=== PATIENT | female | born 1935 | race Caucasian/White ===

== ENCOUNTER → 2017-01-31 | Outpatient (CLI) | payer MEDICARE, OTHER ==
[~2017-01-31] MED LIST: ACET500C OR; ASPI325T OR; ASPI325T PO; ASPIRIN PO; B COCAP5 PO; CALC500T36 PO; CALCTAB93 PO; CHEL50TA PO; CIPR500T19 OR; COLA100C2 OR; CRAN400T3 PO; DULCOLAX PO; Docusate Sod/Senna PO; FERR325T OR; FERR325T PO; FERR325T3 PO; FISH500C OR; FISHCAP PO; FLEEENE4 PR; HERCEPTIN IV; LISI2.5T OR; MILKSUS PO; MIRALEX OR; MIRALEX PO; NORV5TAB PO; PAIN325T PO; PEG1POW PO; PERCOCET PO; ROSE HIPS OR; SERT50TA PO; TAMO20TA4 PO; VITA10006 PO; VITA2000 PO; VITA500T OR; VITATAB11 PO; ZINCLOZ9 PO; [UNRECOGNIZED DRUG - OTHER]; [UNRECOGNIZED DRUG - OTHER] OR; [UNRECOGNIZED DRUG - OTHER] PO
--- NOTE | 2017-01-31 15:13 | RADONC ---
RADIATION ONCOLOGY FOLLOWUP NOTE: DATE OF SERVICE: 01/31/2017 CHART NO: [id number] DIAGNOSIS: Left breast cancer. STAGE: Stage III A, [id number] ECOG PERFORMANCE STATUS: 0 Ms. 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 The patient presents today reporting that she is doing quite well with no complaints at this point related to her radiation therapy or disease. She has no breast or bone pain. REVIEW OF SYSTEMS: The patient's review of systems is noncontributory. Denies nausea, vomiting, fevers, chills, night sweats, diplopia, headaches, anxiety or depression, anorexia, weight loss, visual disturbances, chest pain, urinary or bowel difficulties, bone pain, or neurological problems. PHYSICAL EXAMINATION: The patient is a well-developed, well-nourished female in no acute distress. HEENT exam is normocephalic, atraumatic. Extraocular movements are intact. There is no palpable cervical, supraclavicular, infraclavicular, axillary, or inguinal lymphadenopathy present. Lungs are clear to auscultation and percussion. Heart has a regular rate and rhythm. Abdomen is benign with no hepatosplenomegaly, masses, or tenderness. Breast examination reveals bilateral chest villegas reveals no evidence of nodularity, ulceration or residual disease. Skeletal examination reveals no tenderness to pressure or percussion of the bony skeleton. Extremities reveal no clubbing, cyanosis, or edema. Neurologic exam is grossly intact, as is the remainder of the physical examination. ASSESSMENT: The patient is clinically GEORGINA at this time. She is being followed closely by Dr. Uriarte her medical oncologist and therefore is being discharged from our followup except on a as needed basis. cc: MD Jl Padilla MD
== END ==
LOC: M ONCR 10:59
PROVIDERS: ATTEND Radiology Radiation Oncology
DX: C50.112 Malignant neoplasm of central portion of left female breast (principal)

== ENCOUNTER 2017-04-09 10:10 | Emergency (ER) | payer MEDICARE, OTHER ==
[~2017-04-09] VITALS: Ht 157.5 cm; Wt 47.7 kg
[2017-04-09] MEDS ORDERED: VITA10006 PO (10:25)
[2017-04-09] MEDS ORDERED: NS 500 ML IV ONE (10:45)
[2017-04-09 11:17] LABS: BASO % 0.6 % (0.0-1.0); EOS % 0.7 % (0.0-3.0); LARGE UNSTAINED CELL # 0.1 K/mm3 (0.0-0.4); LARGE UNSTAINED CELL % 1.6 % (0.0-4.0); LYMPH # 0.7 K/mm3 (1.5-4.5); LYMPH % 11.8 % (24.0-44.0); MEAN CORPUSCULAR HEMOGLOBIN 33.5 pg (27.0-33.0); MEAN CORPUSCULAR HGB CONC 33.3 g/dl (32.0-36.5); MEAN CORPUSCULAR VOLUME 100.7 fl (80.0-96.0); MONO # 0.3 K/mm3 (0.0-0.8); MONO % 4.3 % (0.0-5.0); NEUTROPHILS # 4.9 K/mm3 (1.8-7.7); NEUTROPHILS % 80.9 % (36.0-66.0); PLATELET COUNT, AUTOMATED 184 k/mm3 (150-450); RED CELL DISTRIBUTION WIDTH 13.3 % (11.5-14.5)
[2017-04-09 11:40] LABS: ANION GAP 6 MEQ/L (8-16); BLOOD UREA NITROGEN 18 MG/DL (7-18); CALCIUM LEVEL 8.6 MG/DL (8.8-10.2); CARBON DIOXIDE LEVEL 29 MEQ/L (21-32); CHLORIDE LEVEL 107 MEQ/L (98-107); CREATININE FOR GFR 0.88 MG/DL (0.55-1.02); GLOMERULAR FILTRATION RATE > 60.0 (>32); GLUCOSE, FASTING 100 MG/DL (83-110); POTASSIUM SERUM 3.6 MEQ/L (3.5-5.1); SODIUM LEVEL 142 MEQ/L (136-145)
[2017-04-09 17:40] VITALS: O2SAT 98
[2017-04-09 17:43] VITALS: BP 156/71
--- NOTE | 2017-04-09 20:02 | ECGEPIP ---
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
--- NOTE | 2017-04-09 20:08 | ECGEPIP ---
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
--- NOTE | 2017-04-12 13:45 | REP ---
Clinical: Near-syncopal episode . Comparison: 08/15/2016 . Findings: The mediastinum and cardiac silhouette are stable and within normal limits for portable technique. Lung zacarias demonstrate chronic stable changes. Subtle right infrahilar opacity cannot be excluded along with 1 cm nodule versus asymmetric nipple shadow in the left mid lung zone. Impression: Cannot exclude right infrahilar opacity as well as left nodule versus asymmetric nipple shadow. Signed by Gilberto Champion MD 04/09/2017 10:40 A
--- NOTE | 2017-04-13 08:17 | ED PDOC ---
Post-Departure Follow-Up RADIOLOGY REPORT FAXED TO Gayatri Nichols MD Apr 13, 2017 08:17
== END 2017-04-09 17:41 | disposition home or self-care (01) ==
LOC: M ED 10:48
DX: R91.1 Solitary pulmonary nodule (principal); R94.31 Abnormal electrocardiogram [ECG] [EKG]; I10 Essential (primary) hypertension; E78.70 Disorder of bile acid and cholesterol metabolism, unspecified; Z88.2 Allergy status to sulfonamides; Z79.899 Other long term (current) drug therapy; Z79.82 Long term (current) use of aspirin; Z95.0 Presence of cardiac pacemaker

== ENCOUNTER → 2018-01-30 | Outpatient (CLI) | payer MEDICARE, OTHER | LOC: M RAD 10:03 | DX: C50.919 Malignant neoplasm of unspecified site of unspecified female breast (principal); M54.9 Dorsalgia, unspecified | CPT/HCPCS: 78306 ==

== ENCOUNTER → 2018-05-09 | Outpatient (REF) | payer MEDICARE, OTHER ==
[2018-05-09 20:18] LABS: FERRITIN 155 NG/ML (8-252); IRON (FE) 32 UG/DL (50-170); PERCENT SATURATION 11.3 % (13.2-45.0); TOTAL IRON BINDING CAPACITY 284 UG/DL (250-450)
== END ==
LOC: M LAB REF 17:27
DX: C50.911 Malignant neoplasm of unspecified site of right female breast (principal); C50.912 Malignant neoplasm of unspecified site of left female breast; C77.3 Secondary and unspecified malignant neoplasm of axilla and upper limb lymph nodes; Z17.0 Estrogen receptor positive status [ER+]; Z90.13 Acquired absence of bilateral breasts and nipples
CPT/HCPCS: 83550

== ENCOUNTER 2018-06-07 11:52 | Emergency (ER) | payer MEDICARE, OTHER ==
[2018-06-07 13:42] LABS: BASO % 0.2 % (0.0-1.0); EOS % 0.2 % (0.0-3.0); HEMATOCRIT 33.8 % (36.0-47.0); HEMOGLOBIN 10.8 g/dl (12.0-15.5); IMMATURE GRANULOCYTE % 0.2 % (0-3.0); LYMPH # 0.5 10^3/uL (1.5-4.5); LYMPH % 5.8 % (24.0-44.0); MEAN CORPUSCULAR HEMOGLOBIN 29.9 pg (27.0-33.0); MEAN CORPUSCULAR VOLUME 93.6 fl (80.0-96.0); MONO # 0.7 10^3/uL (0.0-0.8); MONO % 7.6 % (0.0-5.0); NEUTROPHILS # 7.3 10^3/uL (1.8-7.7); PLATELET COUNT, AUTOMATED 252 10^3/uL (150-450); RED BLOOD COUNT 3.61 10^6/uL (4.00-5.40); RED CELL DISTRIBUTION WIDTH 13.4 % (11.5-14.5); WHITE BLOOD COUNT 8.6 10^3/uL (4.0-10.0)
[2018-06-07 13:46] LABS: INR 0.95; PROTHROMBIN TIME 12.8 SECONDS (12.1-14.4)
[2018-06-07 13:47] LABS: PARTIAL THROMBOPLASTIN TIME 25.7 SECONDS (25.4-37.6)
[2018-06-07 14:00] LABS: ALBUMIN 2.9 GM/DL (3.2-5.2); ALBUMIN/GLOBULIN RATIO 0.67 (1.00-1.93); ALKALINE PHOSPHATASE 62 U/L (45-117); ALT/SGPT 19 U/L (12-78); ANION GAP 7 MEQ/L (8-16); AST/SGOT 27 U/L (7-37); BILIRUBIN,DIRECT < 0.1 MG/DL (0.0-0.2); BILIRUBIN,TOTAL 0.3 MG/DL (0.2-1.0); BLOOD UREA NITROGEN 29 MG/DL (7-18); CALCIUM LEVEL 9.2 MG/DL (8.8-10.2); CARBON DIOXIDE LEVEL 29 MEQ/L (21-32); CHLORIDE LEVEL 106 MEQ/L (98-107); CPK CREATINE PHOSPHOKINASE 28 U/L (26-192); CREATININE FOR GFR 0.92 MG/DL (0.55-1.30); GLOMERULAR FILTRATION RATE > 60.0 (>32); GLUCOSE, FASTING 100 MG/DL (70-100); MAGNESIUM LEVEL 2.1 MG/DL (1.8-2.4); POTASSIUM SERUM 3.6 MEQ/L (3.5-5.1); SODIUM LEVEL 142 MEQ/L (136-145); TOTAL PROTEIN 7.2 GM/DL (6.4-8.2); TROPONIN I < 0.02 NG/ML (< 0.10)
[2018-06-07] MEDS: NS 1,000 ML IV (14:01)
[2018-06-07 14:06] LABS: CK-MB VALUE MASS < 1.0 NG/ML (<3.6); MB/CK RELATIVE INDEX 3.57 (< OR =4)
[2018-06-09 14:41] LABS: BEDSIDE GLUCOSE 95 MG/DL (83-110)
== END 2018-06-07 17:29 | disposition home or self-care (01) ==
LOC: M ED 11:52
DX: S82.302A Unspecified fracture of lower end of left tibia, initial encounter for closed fracture (principal); W22.8XXA Striking against or struck by other objects, initial encounter; Y92.019 Unspecified place in single-family (private) house as the place of occurrence of the external cause; Z87.891 Personal history of nicotine dependence
CPT/HCPCS: 71045

== ENCOUNTER → 2018-06-20 | Outpatient (CLI) | payer MEDICARE, OTHER ==
[~2018-06-20] MED LIST changes: -ACET500C OR; -ASPI325T OR; -ASPI325T PO; -ASPIRIN PO; -B COCAP5 PO; -CALC500T36 PO; -CALCTAB93 PO; -CHEL50TA PO; -CIPR500T19 OR; -COLA100C2 OR; -CRAN400T3 PO; -DULCOLAX PO; -Docusate Sod/Senna PO; -FERR325T OR; -FERR325T PO; -FERR325T3 PO; -FISH500C OR; -FISHCAP PO; -FLEEENE4 PR; +GASTROGRAFIN SOLUTION 30ML (Q9963) As Ordered; -HERCEPTIN IV; +ISOVUE-370 76% 100ML VIAL (Q9967) As Ordered; -LISI2.5T OR; -MILKSUS PO; -MIRALEX OR; -MIRALEX PO; -NORV5TAB PO; -PAIN325T PO; -PEG1POW PO; -PERCOCET PO; -ROSE HIPS OR; -SERT50TA PO; -TAMO20TA4 PO; -VITA10006 PO; -VITA2000 PO; -VITA500T OR; -VITATAB11 PO; -ZINCLOZ9 PO; -[UNRECOGNIZED DRUG - OTHER]; -[UNRECOGNIZED DRUG - OTHER] OR; -[UNRECOGNIZED DRUG - OTHER] PO
== END ==
LOC: M RAD 11:39
DX: C50.919 Malignant neoplasm of unspecified site of unspecified female breast (principal); R05 Cough; R10.9 Unspecified abdominal pain; R91.8 Other nonspecific abnormal finding of lung field
CPT/HCPCS: Q9963

== ENCOUNTER → 2018-07-02 | Outpatient (CLI) | payer MEDICARE, OTHER ==
[~2018-07-02] MED LIST changes: -GASTROGRAFIN SOLUTION 30ML (Q9963) As Ordered; -ISOVUE-370 76% 100ML VIAL (Q9967) As Ordered; +LIDOCAINE 1% MDV 20ML VIAL As Ordered
== END ==
LOC: M RADPRO 12:11
DX: C78.01 Secondary malignant neoplasm of right lung (principal); I10 Essential (primary) hypertension; M12.9 Arthropathy, unspecified; D50.9 Iron deficiency anemia, unspecified; Z79.82 Long term (current) use of aspirin; Z79.899 Other long term (current) drug therapy; Z85.3 Personal history of malignant neoplasm of breast; Z90.13 Acquired absence of bilateral breasts and nipples; Z90.710 Acquired absence of both cervix and uterus; Z90.49 Acquired absence of other specified parts of digestive tract; Z95.818 Presence of other cardiac implants and grafts; Z95.0 Presence of cardiac pacemaker; Z87.891 Personal history of nicotine dependence
CPT/HCPCS: 32405

== ENCOUNTER → 2018-07-09 | Outpatient (REF) | payer MEDICARE, OTHER ==
[2018-07-09 18:23] LABS: INR 0.84; PROTHROMBIN TIME 11.6 SECONDS (12.1-14.4)
[2018-07-09 18:24] LABS: PARTIAL THROMBOPLASTIN TIME 28.2 SECONDS (25.4-37.6)
== END ==
LOC: M LAB REF 16:30
DX: C50.911 Malignant neoplasm of unspecified site of right female breast (principal); C50.912 Malignant neoplasm of unspecified site of left female breast; C77.3 Secondary and unspecified malignant neoplasm of axilla and upper limb lymph nodes; Z17.0 Estrogen receptor positive status [ER+]; Z90.13 Acquired absence of bilateral breasts and nipples; D50.9 Iron deficiency anemia, unspecified
CPT/HCPCS: 85610

== ENCOUNTER → 2018-09-16 | Outpatient (CLI) | payer MEDICARE, OTHER | LOC: M RAD 15:54 | DX: R91.8 Other nonspecific abnormal finding of lung field (principal); R93.5 Abnormal findings on diagnostic imaging of other abdominal regions, including retroperitoneum; C50.919 Malignant neoplasm of unspecified site of unspecified female breast | CPT/HCPCS: 71250 ==

== ENCOUNTER → 2018-10-10 | Outpatient (CLI) | payer MEDICARE, OTHER ==
[~2018-10-10] MED LIST changes: +ACET500C OR; +ACET500T15 PO; +ASPI325T OR; +ASPI325T PO; +ASPIRIN PO; +B COCAP5 PO; +CALC500T36 PO; +CALCI50TA PO; +CALCTAB93 PO; +CHEL50TA PO; +CIPR500T19 OR; +COLA100C2 OR; +CRAN400T3 PO; +D-10TAB PO; +DEXA2TA PO; +DULCOLAX PO; +Docusate Sod/Senna PO; +FERR325T OR; +FERR325T PO; +FERR325T3 PO; +FISH500C OR; +FISHCAP PO; +FLEEENE4 PR; +HERCEPTIN IV; -LIDOCAINE 1% MDV 20ML VIAL As Ordered; +LISI2.5T OR; +MILK120011 PO; +MIRALEX OR; +MIRALEX PO; +NORV5TAB PO; +OSTETAB7 PO; +PAIN325T PO; +PEG1POW PO; +PERCOCET PO; +RANI1TAB6 PO; +ROLLMIS2 XX; +ROSE HIPS OR; +SERT50TA PO; +TAMO20TA8 PO; +VITA10006 PO; +VITA2000 PO; +VITA250L PO; +VITA500T OR; +VITATAB11 PO; +ZINCLOZ9 PO; +[UNRECOGNIZED DRUG - OTHER]; +[UNRECOGNIZED DRUG - OTHER] OR; +[UNRECOGNIZED DRUG - OTHER] PO
== END ==
LOC: M RAD 16:33
PROVIDERS: ATTEND Internal Medicine Medical Oncology
DX: R55 Syncope and collapse (principal); C50.919 Malignant neoplasm of unspecified site of unspecified female breast

== ENCOUNTER → 2018-10-25 | Outpatient (CLI) | payer MEDICARE, OTHER ==
[~2018-10-25] MED LIST changes: +ISOVUE-370 76% 100ML VIAL (Q9967) As Ordered ONE
--- NOTE | 2018-10-25 15:48 | REP ---
CT HEAD WITHOUT AND WITH CONTRAST: HISTORY: Metastatic breast carcinoma. CONTRAST: Isovue-370, 75 mL. A right ring enhancing mass 1.7 cm in width is present in the anterior right cerebellum. There is no surrounding edema. There is very minimal mass effect on the 4th ventricle. There is no midline shift. Areas of decreased attenuation are present in the periventricular and subcortical white matter. This represents small vessel ischemic disease. There is no intraparenchymal hemorrhage, infarct, or midline shift. The ventricular system and cortical sulci are dilated consistent with mild volume loss. There is no extra cerebral collection. Mucosal thickening is present in the ethmoid, maxillary, frontal and right sphenoid sinuses. IMPRESSION: 1. There is a 1.7 cm ring enhancing mass consistent with a metastasis in the right cerebellum. There is no midline shift. 2. Small vessel ischemic disease. 3. Mild volume loss. Electronically Signed by Jeffery Sousa MD 10/25/2018 03:49 P
--- NOTE | 2018-10-28 13:41 | MEDONCTEEN ---
Date/Time of Encounter Date of Encounter: Oct 28, 2018 Time of Encounter: 13:[address] head showed a brain lesion. I recommended a Radiation Oncology referral. SHARITA PEREZ MD Oct 28, 2018 13:41
== END ==
LOC: M RAD 14:35
PROVIDERS: ATTEND Internal Medicine Medical Oncology
DX: C50.919 Malignant neoplasm of unspecified site of unspecified female breast (principal); C78.01 Secondary malignant neoplasm of right lung; I73.9 Peripheral vascular disease, unspecified
CPT/HCPCS: 70470; Q9967

== ENCOUNTER → 2018-11-04 | Outpatient (CLI) | payer MEDICARE, OTHER ==
[~2018-11-04] MED LIST changes: -ISOVUE-370 76% 100ML VIAL (Q9967) As Ordered ONE
--- NOTE | 2018-11-06 09:50 | RADONC ---
RADIATION ONCOLOGY CONSULTATION NOTE DATE OF SERVICE: 11/04/2018 CHART NUMBER: [id number] DIAGNOSIS: Left breast cancer. STAGE: Stage III A, [id number], now metastatic. ECOG PERFORMANCE STATUS: 0. CONSULTATION NOTE: Ms. 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 HISTORY OF PRESENT ILLNESS: The patient was initially seen by us on April 27, 2011. She had undergone routine mammogram on 08/19/2010 and a suspicious abnormality was seen. The patient underwent bilateral mastectomies on 11/18/2010 and pathology revealed a right breast cancer with a 3 cm poorly differentiated infiltrating ductal carcinoma. The tumor was estrogen receptor positive, progesterone receptor positive and HER2/channing positive. The left breast revealed three masses, each measuring 3 cm in size and were poorly differentiated. A total of nine left axillary lymph nodes were positive for malignancy with extracapsular extension noted. The patient underwent systemic therapy and we treated the patient to her left chest wall for a dose of 5040 cGy. The scar area received an additional 1000 cGy to bring it to a total of 6040 cGy. In addition, we treated the patient to the lymph node drainage sites for a dose of 5040 cGy as well. Overall, the patient did quite well and was last seen by me on 01/31/2017. At that time, she had no evidence of disease and I discharged her from our followup. She was continuing with her follow up with her medical oncologist, Dr. Uriarte. Apparently, a CAT scan was done in June of this year which showed lung metastases. A repeat CT of the chest done in September showed progression of those metastases. The patient has had increased difficulty with hearing and a CT scan of the head was undertaken on 10/10/2018. This showed a new 2 cm low density area in the right superior cerebellum consistent with a mass lesion. On 10/25/[address] scan of the head was undertaken with and without contrast and this confirmed a 1.7 cm ring enhancing mass consistent with metastatic disease in the right cerebellar area. PAST MEDICAL HISTORY: The patient's past medical history is positive for hypertension, cholecystectomy, appendectomy and tonsillectomy. She also had a hysterectomy. She has a pacemaker and a history of seizures. She has a history of bronchitis as well. ALLERGIES: The patient is allergic to SULFA DRUGS. SOCIAL HISTORY The patient has smoked one pack of cigarettes per day for 60 years. She quit approximately 5 or 6 years ago. Does not abuse alcohol. FAMILY HISTORY: The patient's family history is positive for a sister with lung cancer and a maternal grandmother with gallbladder cancer. REVIEW OF SYSTEMS: The patient's review of systems is positive for physical limitations secondary to her old age and some occasional dizziness. She has anxiety and some visual disturbances. She reports decreased energy and weakness in her arms and legs, as well as some hearing loss and shortness of breath. She denies nausea, vomiting, fevers, chills, night sweats, diplopia, headaches, chest pain, urinary or bowel difficulties, bone pain or neurological problems. PHYSICAL EXAMINATION: The patient is an elderly white female who is presenting in a wheelchair. HEENT: Exam is normocephalic, atraumatic. Extraocular movements are intact. The remainder of the physical was deferred. ASSESSMENT: I had a very lengthy discussion with this patient and her family with regards to her options. We discussed traditional all brain external beam radiation therapy versus stereotactic radiosurgery. This is a solitary 1.7 cm metastasis and should be well served with stereotactic radiosurgery, which we do not do in this facility. I have therefore referred her to obtain an expert opinion from the radiation oncologists at [facility] in [place]. We also discussed her metastatic disease to the lung, which appears to be slowly progressing. I have compared a CT scan of the lung done this summer with one done in September and clearly there is some progression of disease. The patient does not wish to undergo systemic therapy for her lung metastasis and is realistic with regards to her overall age and outcome. She and her family have discussed the fact that they want the best option for long-term control of her brain metastasis to keep her mind clear for the remainder of time she has left. They are aware, that considering her limited prognosis, WBRT would be an acceptable option. In light of this, I am referring the patient, as noted above, to the radiation oncology department at [facility]. We are also scheduling her to come back to us following that for followup as well in order to close the loop. In addition, she will continue her follow up with her medical oncologist. cc: MD Joelle Wilburn MD, FACP Jl Valadez MD [facility]
== END ==
LOC: M ONCR 13:51
PROVIDERS: ATTEND Radiology Radiation Oncology
DX: C50.912 Malignant neoplasm of unspecified site of left female breast (principal); C71.9 Malignant neoplasm of brain, unspecified

== ENCOUNTER 2018-12-30 17:01 | Inpatient (IN) | payer MEDICARE, OTHER ==
[~2018-12-30] VITALS: Ht 162.6 cm; Wt 60.9 kg
[2018-12-30 17:58] LABS: HEMATOCRIT 35.8 % (36.0-47.0); HEMOGLOBIN 11.7 g/dl (12.0-15.5); MEAN CORPUSCULAR HGB CONC 32.7 g/dl (32.0-36.5); MEAN CORPUSCULAR VOLUME 91.8 fl (80.0-96.0); PLATELET COUNT, AUTOMATED 106 10^3/uL (150-450); WHITE BLOOD COUNT 4.1 10^3/uL (4.0-10.0)
[2018-12-30 17:58] LABS: VENOUS BASE EXCESS 1.3 (-2.0-2.0); VENOUS HCO3 24.3 MEQ/L (23.0-27.0); VENOUS O2 SATURATION 96.3 % (60.0-80.0); VENOUS PARTIAL PRESSURE CO2 33.4 mmHg (38.0-50.0); VENOUS PARTIAL PRESSURE O2 82.2 mmHg (30.0-50.0); VENOUS STANDARD HCO3 25.6 MEQ/L; VENOUS TOTAL CO2 25.3 MEQ/L (24.0-28.0)
[2018-12-30 18:28] LABS: ALBUMIN 2.3 GM/DL (3.2-5.2); BILIRUBIN,DIRECT 0.1 MG/DL (0.0-0.2); BILIRUBIN,TOTAL 0.3 MG/DL (0.2-1.0); CALCIUM LEVEL 8.2 MG/DL (8.8-10.2); CREATININE FOR GFR 1.06 MG/DL (0.55-1.30); GLOMERULAR FILTRATION RATE 52.4 (>32); MB/CK RELATIVE INDEX 8.71 (< OR =4); POTASSIUM SERUM 3.8 MEQ/L (3.5-5.1); THYROID STIMULATING HORMONE 1.38 uIU/ML (0.358-3.740); TOTAL PROTEIN 5.3 GM/DL (6.4-8.2); TROPONIN I 0.06 NG/ML (< 0.10)
[2018-12-30 18:30] LABS: INFLUENZA A AMPLIFICATION NEGATIVE (NEGATIVE); INFLUENZA B AMPLIFICATION NEGATIVE (NEGATIVE)
[2018-12-30 18:31] LABS: ATYPICAL LYMPH 1 % (0-5); EOSINOPHILS 1 % (0-5); METAMYELOCYTES 3 % (0-0); NEUTROPHILS 76 % (35-75)
[2018-12-30 18:32] LABS: DOHLE BODIES 1+; TOXIC VACUOLATION 2+
[2018-12-30 18:34] LABS: TOXIC GRANULATION 1+
[2018-12-30 18:35] LABS: PLATELET ESTIMATE DECREASED (NORMAL)
--- NOTE | 2018-12-30 19:36 | REP ---
Portable chest x-ray: Single view. History: Dyspnea and cough. Comparison chest x-ray: July 02, 2018. Findings: Multiple bilateral pulmonary nodules and masses are again noted consistent with extensive pulmonary metastatic disease. The nodules appear more numerous and are rather extensive bilaterally. A bipolar pacemaker is seen in the right heart via the left side as before. There are surgical clips in the axillary soft tissues bilaterally. Impression: Findings consistent with progressive pulmonary metastatic disease. Pacemaker in place. No acute infiltrate. Electronically Signed by Cole Bey MD 12/30/2018 08:59 P
[2018-12-30] MEDS ORDERED: NS 1,000 ML IV SCH ×2 (19:40→22:00)
[2018-12-30] MEDS ORDERED: cefTRIAXone SOD 1 GM in D5W MINI-BAG PLUS 50 ML IV ONE (21:00)
[2018-12-30] MEDS ORDERED: NAPROXEN 250 MG TAB PO ONE (21:00)
[2018-12-30] MEDS ORDERED: [UNRECOGNIZED DRUG - CODE] SL (21:11)
[2018-12-30] MEDS ORDERED: DEXA2TA PO (21:11)
[2018-12-30] MEDS ORDERED: GLUC15009 PO (21:14)
[2018-12-30] MEDS ORDERED: ALEV220T26 PO (21:14)
[2018-12-30] MEDS ORDERED: CRAN400C PO (21:14)
[2018-12-30] MEDS ORDERED: BISO5TAB5 PO (21:14)
[2018-12-30] MEDS ORDERED: RANI150C PO (21:15)
[2018-12-30] MEDS ORDERED: ACET-683 PO (21:17)
[2018-12-30] MEDS ORDERED: ONDANSETRON 4MG/2ML VIAL (J2405) IV PRN (22:00)
[2018-12-30] MEDS ORDERED: traMADol 50 MG TAB PO ONE (22:15)
[2018-12-30] MEDS ORDERED: ACETAMINOPHEN TAB 650MG DOSE (2X325MG) PO PRN (22:15)
--- NOTE | 2018-12-30 23:01 | HPE ---
DATE OF ADMISSION: 12/30/2018 CHIEF COMPLAINT: Subjective fevers and chills, and right hip pain radiating down the legs. HISTORY OF THE PRESENT ILLNESS: The patient is an 83-year-old female with significant past medical history of metastatic breast cancer with metastasis (mets) to the lungs, approximately 8 years ago, status post bilateral mastectomy, chemo, radiation, now has mets to the lungs. Usually follows with Dr. Tran, has not had treatment for this metastatic breast cancer since 8 years ago. She was on estrogen modulator, which was subsequently stopped. She has hypertension, hyperlipidemia, anemia. She presents to the emergency room as per her daughter who prompted her to go as she was having chills last night. Patient denies any cough. She denies any chest pain, shortness of breath, abdominal pain, constipation, diarrhea, urinary symptoms, nausea or vomiting. Notably, over the past several days, she has also been complaining of right hip pain radiating down to the knees. CT of the abdomen and pelvis in the emergency room shows lytic lesions in the sacrum and the iliac crest concerning for bony mets, which may likely be responsible for her pain versus possibly some sort of lumbar radiculopathy or muscle strain. Patient's family states she has a very poor appetite and consumes very little fluids at home. She tends to get dehydrated. She has a mild lactate on presentation to the emergency room; however, she does not appear toxic. She is quite pleasant appearing. Also, notably in the history she had a recent gamma knife procedure for mets to the cerebellum in September at [facility]. She has been on Decadron since then for cerebral edema. PAST MEDICAL HISTORY: See history of the present illness. PAST SURGICAL HISTORY: She has had a hysterectomy, cholecystectomy, tonsillectomy and adenoidectomy, bilateral mastectomy many years ago. She has had a gamma knife excision of cerebellar mass in 09/2018 at [facility]. ALLERGIES: SULFA and SULFA DRUG CROSS REACTORS. HOME MEDICATIONS: Include: - Tylenol - naproxen - vitamin C - aspirin - bisoprolol - vitamin D - Decadron - ferrous sulfate - ranitidine - sertraline SOCIAL HISTORY: She is a former smoker. Denies alcohol or illicit drug abuse. FAMILY HISTORY: Heart disease and lung cancer - sister. REVIEW OF SYSTEMS: A 12-point review of systems was completed, all of which were negative except those listed in the history of the present illness. VITAL SIGNS ON ADMISSION: Temperature 97.2, pulse of 82, respirations of 18, blood pressure 112/52, saturating at 94% on room air. PHYSICAL EXAM: General: She is an elderly female. She is very well nourished and nontoxic appearing, in no apparent distress. Eyes: Extraocular movements are intact. Pupils equal, round, reactive to light. Neck is supple. No jugular venous pressure (JVP). Lungs: Some mild wheezing but no crackles. Cardiovascular: Regular rate and rhythm. Normal S1, S2. No murmurs, gallops, or rubs. Abdomen: Soft, nontender, nondistended. Positive bowel sounds. No rebound or guarding. Extremities: No pitting edema or calf tenderness. Skin: Intact. No rashes, lesions, or breakdown. Neurological: Alert and oriented times three. No focal deficit appreciated on the exam. LABS AND IMAGING: Completed in the emergency room. White count of 4, hemoglobin and hematocrit of 11 over 35, platelet count of 106. VB.48, 82, 96. Chemistry shows a lactate of 2.7, BUN and creatinine of 36 over 1.06. TSH within normal limits, BNP of 2446, alkaline phosphatase of 222, AST of 69. UA has 7 WBCs. Rapid flu is negative. Chest x-ray shows findings consistent with progressive pulmonary metastatic disease, pacemaker in place. Head CT has interval increase in the size of the low density right cerebellar lesion, now measuring 2.6 x 1.9 cm. There is some increased edema in the inferiorly adjacent right cerebellar hemisphere. CT of the abdomen and pelvis: Bony metastatic lesion in the right upper sacrum and right iliac bone, new from September 16, 2018. Old healed fracture in the left inferior pubic ramus, unchanged from prior comparison. Diverticulosis without diverticulitis. ASSESSMENT AND PLAN: Generalized weakness, hip pain. This is likely secondary to deconditioning, dehydration, and the hip pain is likely secondary to the new bony mets versus less likely some type of lumbar radiculopathy. Will place the patient on tramadol. Will get physical therapy (PT). Will fluid hydrate. Will trend the lactate until it normalizes. Her urinalysis only has 7 WBCs; I do not think this is significant at this point in time. One dose of ceftriaxone was given in the emergency room. Will get a second dose just to cover empirically in this patient who is on Decadron; however, she has no urinary tract infection (UTI) type symptoms and the UA is relatively sterile. She has a history of sick sinus syndrome, status post pacemaker. This is stable. History of metastatic breast cancer with mets to the lungs, mets to the brain, status post gamma knife, possibly now mets to the bone. She usually sees Dr. Tran. She has an upcoming appointment. Her neurosurgeon is at [facility]. She is on Decadron for brain edema. Continue the Decadron. She will be tapered as per her neurosurgeon, upcoming soon. Continue the Decadron as per dosage. History of hypertension. Continue bisoprolol. Iron deficiency anemia. Continue ferrous sulfate. Gastroesophageal reflux disease. Continue ranitidine. Depression/anxiety. Continue Zoloft. SUPPORTIVE: Deep vein thrombosis (DVT) prophylaxis: Heparin subcu. Gastrointestinal (GI) prophylaxis: The patient is already on an H2 cecelia. Diet: Cardiac. MTDD
[2018-12-31 01:05] VITALS: BP 150/65
[2018-12-31] MEDS: IPRATROPIUM 0.5MG/ALBUTEROL 2.5MG INH SOL UD 3ML (DUONEB)(J7620) NEB SCH ×4 (02:00→20:18)
[2018-12-31 05:00] VITALS: BP 134/63
[2018-12-31] MEDS: HEPARIN SOD (PORCINE) 5000 UNITS/ML VIAL SC SCH ×3 (05:37→21:10)
--- NOTE | 2018-12-31 06:32 | REP ---
CT brain without contrast: History: Altered mental status. Comparison brain CT study is from October 25, 2018. This prior study showed a 1.7 cm ring enhancing lesion consistent with metastasis in the right cerebellum. CT findings: Bone window settings show no bony calvarial lesion. Visualized paranasal sinuses remain clear. No intraorbital abnormality is seen. Vascular calcifications again noted. There is diffuse atrophy and small vessel change. There is evidence of old lacunar infarcts in the right basal ganglia, unchanged. No acute infarct is seen. No hemorrhage is noted. The previously noted low density lesion in the right cerebellum has increased somewhat in size from 2.0 x 1.6 to 2.6 x 1.9 cm. There is some inferiorly adjacent edema which is also increased. No other intracranial mass lesion is seen. No extra-axial fluid collection is observed. Ventricular size is unchanged. Impression: Interval increase in the size of the low density right cerebellar lesion, now measuring 2.6 x 1.9 cm. There is some increased edema in the inferiorly adjacent right cerebellar hemisphere. Electronically Signed by Cole Bey MD 12/31/2018 07:35 P
--- NOTE | 2018-12-31 06:35 | REP ---
CT abdomen and pelvis without IV contrast or oral contrast. History: Right flank pain. History of breast carcinoma metastatic. CT findings: There are multiple metastatic pulmonary nodules and masses in the lung bases as seen radiographically. No focal hepatic lesion is seen. The spleen is unremarkable. No adrenal lesion is observed. No pancreatic abnormality observed. The gallbladder is surgically absent. There is no evidence of hydronephrosis or intrarenal calculus on either side. A 2.5 cm ectasia is seen in the abdominal aorta. No aneurysm is observed. Heavy vascular calcification is seen. The appendix is surgically absent. Urinary bladder is unremarkable. The patient is status post hysterectomy. There is left colonic diverticulosis without CT evidence of diverticulitis. No abdominal wall defect is seen. Bone window settings demonstrate an expansile area in the inferior pubic ramus on the left which it is felt to be an old healed fracture. It is unchanged from prior studies. However, there are two adjacent small radiolucencies in the iliac bone on the right above the iliac crest with some cortical breakthrough consistent with a radiolucent skeletal metastasis. There is also a lesion in the right sacrum. This measures 2.5 cm in greatest diameter. These findings are new. No other skeletal lesion. Impression: Bony metastatic lesions in the right upper sacrum and right iliac bone, new from September 16, 2018. Old healed fracture left inferior pubic ramus unchanged from comparison studies. Left colonic diverticulosis without evidence of diverticulitis. No acute intra-abdominal abnormality. Electronically Signed by Cole Bey MD 12/31/2018 07:36 P
[2018-12-31 07:15] LABS: BLOOD UREA NITROGEN 28 MG/DL (7-18); CALCIUM LEVEL 8.2 MG/DL (8.8-10.2); CARBON DIOXIDE LEVEL 26 MEQ/L (21-32); CHLORIDE LEVEL 108 MEQ/L (98-107); CREATININE FOR GFR 0.58 MG/DL (0.55-1.30); GLOMERULAR FILTRATION RATE > 60.0 (>32); GLUCOSE, FASTING 101 MG/DL (70-100); POTASSIUM SERUM 3.7 MEQ/L (3.5-5.1); SODIUM LEVEL 141 MEQ/L (136-145)
[2018-12-31] MEDS: FAMOTIDINE 20 MG TAB PO SCH (08:26)
[2018-12-31] MEDS: SERTRALINE HCL 50 MG TAB PO SCH (08:26)
[2018-12-31] MEDS: ASCORBIC ACID 500 MG TAB PO SCH ×2 (08:26→21:09)
--- NOTE | 2018-12-31 08:49 | ECGEPIP ---
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
[2018-12-31] MEDS: VITAMIN D 1,000 INTERNATIONAL UNITS TABLET PO SCH (12:17)
[2018-12-31] MEDS: BISOPROLOL FUM 2.5 MG PER 1/2TAB PO SCH (12:37)
[2018-12-31] MEDS ORDERED: cefTRIAXone SOD 1 GM in D5W MINI-BAG PLUS 50 ML IV SCH (13:00)
[2018-12-31 13:08] LABS: HEMATOCRIT 32.1 % (36.0-47.0); HEMOGLOBIN 10.2 g/dl (12.0-15.5); MEAN CORPUSCULAR HGB CONC 31.8 g/dl (32.0-36.5); MEAN CORPUSCULAR VOLUME 94.4 fl (80.0-96.0); WHITE BLOOD COUNT 11.5 10^3/uL (4.0-10.0)
[2018-12-31 13:50] LABS: PLATELET COUNT, AUTOMATED 87 10^3/uL (150-450)
[2018-12-31 14:07] VITALS: BP 134/83
--- NOTE | 2018-12-31 18:18 | IPNPDOC ---
Date Seen The patient was seen on 12/31/18. Progress Note SUBJECTIVE: Patient was seen this morning. She currently states that since arriving her leg pain has been well controlled with medications. She is denying any complaints at this time. OBJECTIVE PHYSICAL EXAMINATION: VITAL SIGNS: Please see below. GENERAL: Awake, alert, and oriented. She appears in no acute distress. She is lying flat in bed comfortably HEENT: Atraumatic, normocephalic. Eyes are non-icteric. Trachea is midline. Mucous membranes are pink and moist no elevation central venous pressure CARDIOVASCULAR: Normal S1, S2. Regular rate and rhythm. No clicks, rubs, or murmurs RESPIRATORY: Clear vesicular lung sounds bilaterally. No wheezes, rhonci, rales ABDOMINAL: Soft, nondistended, nontender to palpation throughout. Positive bowel sounds EXTREMITIES: No edema. Pulses full and equal in bilateral lower and upper extremities NEUROLOGICAL: No focal neurological deficits PSYCHOLOGICAL: Mood and affect appear appropriate LABORATORY DATA, IMAGING STUDIES, MICROBIOLOGY: Please see below. DVT prophylaxis ordered?: ASSESSMENT AND PLAN: Patient is a 83 year old female with a past medical history of breast cancer who was recently found to have mets to her lungs and cerebellum who presented to the ED with complaint of right leg pain and overall generalized weakness and chills. CT imaging revealed likely lytic bone lesions in the sacrum and iliac crest. Patients family also noted that she has had poor PO intake recently. PROBLEMS: 1. Bactermia Gram negative rods -Patient was found to have Gram negative bacteremia from blood cultures. Currently her WBC remains unelevated and she is afebrile although she has complained of chills previously. She has received a dose of Rocephin in the ED. -Cultures are pending. -Continue IV Rochephin 2. Metastatic Breast Cancer -Patient was found to have metastatic breast cancer to the lungs, cerebellum, and possibly the pelvis. She currently is not receiving treatment. The patient accompanied by her two daughters was introduced to the idea of hospice care. The patient has voiced that she would prefer to be home and not have invasive treatments. The patients family has been in contact with hospice services today. She is in agreement with meeting with hospice again tomorrow. The goal and options of going with hospice or not were discussed with the patient. At this current time she does have positive blood cultures suggesting bacteremia. The current plan is to treat her for her possible bacteremia and upon discharge patient may go home on Hospice. -Patient will be continued on Decadron for cerebellar swelling secondary to recent gamma knife treatment 3. History of Hypertension -Continue home bisoprolol 4. Iron Deficiency Anemia -Continue ferrous sulfate 5. GERD -Continue ranitidine 6. Depression/Anxiety -Continue Zoloft 7. DVT prophylaxis -Heparin SQ VS, I&O, 24H, Fishbone Vital Signs/I&O Vital Signs Date Time Temp Pulse Resp B/P (MAP) Pulse Ox O2 Delivery O2 Flow Rate FiO2 12/31/18 14:07 97.2 65 134/83 (100) 93 12/31/18 05:00 66 12/31/18 01:05 2.0 12/30/18 23:46 Nasal Cannula I&O- Last 24 Hours up to 6 AM 12/31/18 06:00 Intake Total 470 ml Output Total 850 ml Balance -380 ml Laboratory Data 24H LABS Laboratory Tests 2 12/30/18 20:18: Urine Color YELLOW, Urine Appearance HAZY, Urine pH 5.0, Urine Specific [place] 1.017, Urine Protein NEGATIVE, Urine Glucose (UA) NEGATIVE, Urine Ketones NEGATIVE, Urine Blood NEGATIVE, Urine Nitrite NEGATIVE, Urine Bilirubin NEGATIVE, Urine Urobilinogen 0.2, Urine Leukocyte Esterase TRACEH, Urine WBC (Auto) 7H, Urine RBC (Auto) 3, Urine Hyaline Casts (Auto) 0, Urine Bacteria (Auto) 3+H, Urine Squamous Epithelial Cells 0, Urine Sperm (Auto) 12/30/18 22:11: Lactic Acid Followup at 4 Hours 1.8 12/31/18 06:37: Nucleated Red Blood Cells % (auto) 0.2H, Immature Platelet Fraction 2.6, Anion Gap 7L, Glomerular Filtration Rate > 60.0, Blood Urea Nitrogen 28H, Creatinine 0.58, Sodium Level 141, Potassium Level 3.7, Chloride Level 108H, Carbon Dioxide Level 26, Calcium Level 8.2L CBC/BMP Laboratory Tests 12/31/18 06:37 Red Blood Count 3.40 L, Mean Corpuscular Volume 94.4, Mean Corpuscular Hemoglobin 30.0, Mean Corpuscular Hemoglobin Concent 31.8 L, Red Cell Distribution Width 17.6 H, Calcium Level 8.2 L Microbiology Microbiology 12/30/18 Blood Culture - Preliminary, Resulted 12/30/18 Blood Culture - Preliminary, Resulted 12/30/18 Urine Culture, Received Pending GME ATTESTATION GME ATTESTATION My faculty preceptor for this patient encounter was physically present during the encounter and was fully available. All aspects of the patient interview, examination, medical decision making process, and medical care plan development were reviewed and approved by the faculty preceptor. The faculty preceptor is aware and concurs with the plan as stated in the body of this note and will attest to such by his/her cosignature. ATTENDING NOTE In brief this is an 83-year-old female who initially presented for subjective fevers at home and pain in the right hip CT scan is showing lytic lesions in the right hip most certainly metastatic disease which is new to the patient's knowledge. The patient immediately expresses her desire to go home she informed me she wants no further treatments therapies she does not wish to have any further blood draws antibiotics chemotherapy or to be brought back to the hospital again I did discuss hospice at length with her including its shortening of her life. Her request I do not feel is unreasonable given her widely metastatic visceral disease stage IV with large brain mass currently not receiving treatment she may well certainly be within the last 6 months of her life. At this time I did encourage her to remain in hospital to treatment for urinary tract infection and did request to revisit the issue in the presence of her family who were able to present later today. Myself Dr. Claros and the patient's 2 daughters did have a lengthy conversation, the older daughter had already spoken to hospice today. The younger daughter is declining hospice care in my presence. During the younger daughter's protest to the suggestion of hospice at home I did make an effort to redirect and asked the patient in the presence how she would wish to proceed laying out options such as full code, reevaluation for chemotherapy and active treatment options, DNR/DNI, hospice at home, hospice house. The patient once again requests hospice at home and the younger daughter begins to speak loudly over the patient stating she does not want hospice. Greater than 30 mins were spent bedside this afternoon, all questions were answered to the satisfaction of the three of them. The daughter suggests that the patient may not be understanding things fully I do make a plan to provide them with a molst form and continue goals of care discussions in the coming days. We are all in agreement that she should continue treatment for her infection remain in hospital at this time JARED CLAROS DO Dec 31, 2018 18:18 KAYODE OSPINA MD Jan 04, 2019 16:53
[2018-12-31] MEDS ORDERED: ASPIRIN 325 MG TAB PO SCH (21:00)
[2018-12-31] MEDS: FERROUS SULFATE 325MG TAB PO SCH (21:09)
[2018-12-31 22:00] VITALS: BP 148/70
[2019-01-01] MEDS: IPRATROPIUM 0.5MG/ALBUTEROL 2.5MG INH SOL UD 3ML (DUONEB)(J7620) NEB SCH ×4 (02:00→20:49)
[2019-01-01 06:00] VITALS: BP 148/75
[2019-01-01] MEDS: HEPARIN SOD (PORCINE) 5000 UNITS/ML VIAL SC SCH (06:00)
[2019-01-01 07:15] LABS: HEMATOCRIT 29.5 % (36.0-47.0); HEMOGLOBIN 9.4 g/dl (12.0-15.5); MEAN CORPUSCULAR HGB CONC 31.9 g/dl (32.0-36.5); RED BLOOD COUNT 3.24 10^6/uL (4.00-5.40); WHITE BLOOD COUNT 9.3 10^3/uL (4.0-10.0)
[2019-01-01 07:22] LABS: PLATELET COUNT, AUTOMATED 78 10^3/uL (150-450)
[2019-01-01 07:34] LABS: BLOOD UREA NITROGEN 25 MG/DL (7-18); CALCIUM LEVEL 8.9 MG/DL (8.8-10.2); CARBON DIOXIDE LEVEL 24 MEQ/L (21-32); CHLORIDE LEVEL 108 MEQ/L (98-107); CREATININE FOR GFR 0.51 MG/DL (0.55-1.30); GLOMERULAR FILTRATION RATE > 60.0 (>32); GLUCOSE, FASTING 120 MG/DL (70-100); POTASSIUM SERUM 4.1 MEQ/L (3.5-5.1); SODIUM LEVEL 141 MEQ/L (136-145)
[2019-01-01] MEDS: BISOPROLOL FUM 2.5 MG PER 1/2TAB PO SCH (08:24)
[2019-01-01] MEDS: FAMOTIDINE 20 MG TAB PO SCH (08:24)
[2019-01-01] MEDS: ASCORBIC ACID 500 MG TAB PO SCH ×2 (08:24→20:53)
[2019-01-01] MEDS: SERTRALINE HCL 50 MG TAB PO SCH (08:24)
[2019-01-01] MEDS ORDERED: LevoFLOXacin IV 250 MG in APPROPRIATE DILUENT 1 EA IV SCH (10:15)
--- NOTE | 2019-01-01 12:10 | IPNPDOC ---
Date Seen The patient was seen on 01/01/19. Progress Note SUBJECTIVE: Patient seen and examined this morning. She currently has no complaints. She denies any nausea, vomiting, diarrhea, constipation. Denies any fever or chills. She did have positive blood cultures which have grown pansensitive Escherichia coli. Is present. His previous discussed with the patient the idea of hospice upon discharge. Her daughters are meeting with hospice today. Patient was shown a MOLST form and stated that she will go over it with her daughters when they come today. OBJECTIVE PHYSICAL EXAMINATION: VITAL SIGNS: Please see below. GENERAL: Patient awake, alert, oriented, appears in no acute distress. She is sitting comfortably in bed HEENT: Normocephalic. Eyes are nonicteric. Trachea is midline. Mucous membranes are pink and moist CARDIOVASCULAR: Normal S1, S2, regular rate and rhythm clicks, rubs or murmurs. RESPIRATORY:. Clear vesicular breath sounds bilaterally with good history effort. No wheezes, rhonchi, rales. ABDOMINAL:, Soft, nontender to palpation. Positive bowel sounds, no rebound tenderness or guarding EXTREMITIES:, No edema. Full equal pulses bilaterally in upper and lower extremities NEUROLOGICAL: No focal neurological deficits PSYCHOLOGICAL: Mood and affect appear appropriate for situation LABORATORY DATA, IMAGING STUDIES, MICROBIOLOGY: Please see below. DVT prophylaxis ordered?: YES ASSESSMENT AND PLAN: Patient is a 83 year old female with a past medical history of breast cancer who was recently found to have mets to her lungs and cerebellum who presented to the ED with complaint of right leg pain and overall generalized weakness and chills. CT imaging revealed likely lytic bone lesions in the sacrum and iliac crest. Patients family also noted that she has had poor PO intake recently. PROBLEMS: 1. Bactermia with culture positive pansensitive Escherichia coli -Patient was found to have Gram negative bacteremia from blood cultures. Currently her WBC remains unelevated and she is afebrile although she has complained of chills previously. She has received a dose of Rocephin in the ED. -Cultures revealed pansensitive Escherichia coli -Patient will receive IV Levaquin -Repeat cultures pending. Once negative cultures, Patient will be transition to by mouth medications. Discharge. 2. Metastatic Breast Cancer -Patient was found to have metastatic breast cancer to the lungs, cerebellum, and possibly the pelvis. She currently is not receiving treatment. The patient accompanied by her two daughters was introduced to the idea of hospice care. The patient has voiced that she would prefer to be home and not have invasive treatments. The patients family has been in contact with hospice services. She is in agreement with meeting with hospice again tomorrow. The goal and options of going with hospice or not were discussed with the patient. At this current time she does have positive blood cultures suggesting bacteremia. The current plan is to treat her for her possible bacteremia and upon discharge patient will go home on Hospice. -Patient's family has plan to meet with hospice today. Patient was given a MOLST form today which she will discuss with her daughters when they arrive. -Patient will be continued on Decadron for cerebellar swelling secondary to recent gamma knife treatment 3. Thrombocytopenia -Patients platelets have decreased over her stay. We will discontinue her aspirin, heparin, and Rocephin. She will be changed to IV levaquin for antibiotic coverage 3. History of Hypertension -Continue home bisoprolol 4. Iron Deficiency Anemia -Continue ferrous sulfate 5. GERD -Continue ranitidine 6. Depression/Anxiety -Continue Zoloft 7. DVT prophylaxis -Discontinued secondary to thrombocytopenia DISPOSITION: Patient will likely be discharged tomorrow on oral antibiotics. At this point she is unsure whether she is going to be discharged on hospice or not. VS, I&O, 24H, [place] Vital Signs/I&O Vital Signs Date Time Temp Pulse Resp B/P (MAP) Pulse Ox O2 Delivery O2 Flow Rate FiO2 01/01/19 08:24 67 148/75 01/01/19 06:00 97.4 16 94 12/31/18 01:05 2.0 12/30/18 23:46 Nasal Cannula I&O- Last 24 Hours up to 6 AM 01/01/19 06:00 Intake Total 810 ml Output Total 850 ml Balance -40 ml Laboratory Data 24H LABS Laboratory Tests 2 01/01/19 06:39: Nucleated Red Blood Cells % (auto) 0.2H, Immature Platelet Fraction 4.6, Anion Gap 9, Glomerular Filtration Rate > 60.0, Blood Urea Nitrogen 25H, Creatinine 0.51L, Sodium Level 141, Potassium Level 4.1, Chloride Level 108H, Carbon Dioxide Level 24, Calcium Level 8.9 CBC/BMP Laboratory Tests 01/01/19 06:39 Red Blood Count 3.24 L, Mean Corpuscular Volume 91.0, Mean Corpuscular Hemoglobin 29.0, Mean Corpuscular Hemoglobin Concent 31.9 L, Red Cell Distribution Width 17.0 H, Calcium Level 8.9 Microbiology Microbiology 01/01/19 Blood Culture, Received Pending 12/30/18 Blood Culture - Preliminary, Resulted 12/30/18 Blood Culture - Preliminary, Resulted 12/30/18 Urine Culture - Final, Complete Escherichia Coli GME ATTESTATION GME ATTESTATION My faculty preceptor for this patient encounter was physically present during the encounter and was fully available. All aspects of the patient interview, e xamination, medical decision making process, and medical care plan development were reviewed and approved by the faculty preceptor. The faculty preceptor is aware and concurs with the plan as stated in the body of this note and will attest to such by his/her cosignature. JARED CLAROS DO Jan 01, 2019 12:10
[2019-01-01] MEDS: VITAMIN D 1,000 INTERNATIONAL UNITS TABLET PO SCH (12:46)
[2019-01-01] MEDS: LevoFLOXacin IV 750 MG in APPROPRIATE DILUENT 1 EA IV SCH (12:48)
[2019-01-01 14:00] VITALS: BP 140/63
[2019-01-01 20:00] VITALS: BP 137/63
[2019-01-01] MEDS: FERROUS SULFATE 325MG TAB PO SCH (20:53)
[2019-01-02] MEDS: IPRATROPIUM 0.5MG/ALBUTEROL 2.5MG INH SOL UD 3ML (DUONEB)(J7620) NEB SCH ×4 (02:00→20:00)
[2019-01-02 04:00] VITALS: BP 154/68
[2019-01-02] MEDS: FAMOTIDINE 20 MG TAB PO SCH (08:59)
[2019-01-02] MEDS: SERTRALINE HCL 50 MG TAB PO SCH (09:00)
[2019-01-02] MEDS: ASCORBIC ACID 500 MG TAB PO SCH ×2 (09:00→21:22)
[2019-01-02] MEDS: BISOPROLOL FUM 2.5 MG PER 1/2TAB PO SCH (09:00)
[2019-01-02 09:05] LABS: HEMATOCRIT 31.1 % (36.0-47.0); HEMOGLOBIN 9.9 g/dl (12.0-15.5); MEAN CORPUSCULAR HEMOGLOBIN 29.7 pg (27.0-33.0); MEAN CORPUSCULAR HGB CONC 31.8 g/dl (32.0-36.5); MEAN CORPUSCULAR VOLUME 93.4 fl (80.0-96.0); PLATELET COUNT, AUTOMATED 109 10^3/uL (150-450); RED BLOOD COUNT 3.33 10^6/uL (4.00-5.40); WHITE BLOOD COUNT 9.4 10^3/uL (4.0-10.0)
[2019-01-02 09:33] LABS: BLOOD UREA NITROGEN 19 MG/DL (7-18); CARBON DIOXIDE LEVEL 26 MEQ/L (21-32); CHLORIDE LEVEL 105 MEQ/L (98-107); CREATININE FOR GFR 0.61 MG/DL (0.55-1.30); GLOMERULAR FILTRATION RATE > 60.0 (>32); GLUCOSE, FASTING 121 MG/DL (70-100); SODIUM LEVEL 141 MEQ/L (136-145)
[2019-01-02] MEDS: VITAMIN D 1,000 INTERNATIONAL UNITS TABLET PO SCH (13:11)
[2019-01-02 14:00] VITALS: BP 168/68
--- NOTE | 2019-01-02 14:35 | IPNPDOC ---
Date Seen The patient was seen on 01/02/19. Progress Note SUBJECTIVE: Patient was seen and examined this morning. She currently has no complaints. Her pain on her right leg has resolved. She has denied any fevers or chills since her admission. She denies any chest pain or shortness of breath. The patients family and health care proxy was here today to discuss Hospice options. They have decided not to go with Hospice at this point in time. The patients health care proxy, her granddaughter who is a nurse had requested to see the patients lab work. She has requested a BNP be added to the patients morning labs tomorrow. The patient has not complained of difficulty breathing, symptoms of paroxysmal nocturnal dyspnea, or any complaints consistent with worsening heart failure. OBJECTIVE PHYSICAL EXAMINATION: VITAL SIGNS: Please see below. GENERAL: Patient awake, alert, oriented, appears in no acute distress. She is sitting comfortably in bed HEENT: Normocephalic. Eyes are nonicteric. Trachea is midline. Mucous membranes are pink and moist CARDIOVASCULAR: Normal S1, S2, regular rate and rhythm clicks, rubs or murmurs. RESPIRATORY:. Clear vesicular breath sounds bilaterally with good history effort. No wheezes, rhonchi, rales. ABDOMINAL:, Soft, nontender to palpation. Positive bowel sounds, no rebound tenderness or guarding EXTREMITIES:, No edema. Full equal pulses bilaterally in upper and lower extremities NEUROLOGICAL: No focal neurological deficits PSYCHOLOGICAL: Mood and affect appear appropriate for situation LABORATORY DATA, IMAGING STUDIES, MICROBIOLOGY: Please see below. DVT prophylaxis ordered?: YES ASSESSMENT AND PLAN: Patient is a 83 year old female with a past medical history of breast cancer who was recently found to have mets to her lungs and cerebellum who presented to the ED with complaint of right leg pain and overall generalized weakness and chills. CT imaging revealed likely lytic bone lesions in the sacrum and iliac crest. Patients family also noted that she has had poor PO intake recently. PROBLEMS: 1. Bactermia with culture positive pansensitive Citrobacter amalonaticus -Patient was found to have Gram negative bacteremia from blood cultures. Currently her WBC remains unelevated and she is afebrile although she has complained of chills previously. She has received a dose of Rocephin in the ED. -Cultures revealed Citrobacter amalonaticus -Patient has received 750 IV Levaquin. She will get a second dose tomorrow -Patient will likely be discharged with oral antibiotics tomorrow 2. Metastatic Breast Cancer -Patient was found to have metastatic breast cancer to the lungs, cerebellum, and possibly the pelvis. She currently is not receiving treatment. The patient accompanied by her two daughters was introduced to the idea of hospice care. The patient has voiced that she would prefer to be home and not have invasive treatments. The patients family has been in contact with hospice services. She is in agreement with meeting with hospice again tomorrow. The goal and options of going with hospice or not were discussed with the patient. At this current time she does have positive blood cultures suggesting bacteremia. -Patient and her family have discussed Hospice and at this time are going to decline going home on hospice. I have discussed the case with Dr. Tran the patients Oncologist who plans on seeing the patient this evening to discuss prognosis and the next course of action given the patient wants to continue with treatment. -Patients health care proxy has traveled down. Patient has yet to fill out a MOLST form however, one has been made available for them -Patient will be continued on Decadron for cerebellar swelling secondary to recent gamma knife treatment -Care was discussed with patients health care proxy who requested that a BNP be drawn for heart failure. The patient does not present with any symptoms suggestive of worsening or decompensated heart failure. 3. Thrombocytopenia -Patients platelets have decreased over her stay. Aspirin, Heparin, and Rocephin were discontinued. Patients platlets are trending up. 3. History of Hypertension -Continue home bisoprolol 4. Iron Deficiency Anemia -Continue ferrous sulfate 5. GERD -Continue ranitidine 6. Depression/Anxiety -Continue Zoloft 7. DVT prophylaxis -Discontinued secondary to thrombocytopenia DISPOSITION: Likely discharge 24-48 hrs with oral antibiotics VS, I&O, 24H, Fishbone VS, I&O, 24H, Fishbone Vital Signs/I&O Vital Signs Date Time Temp Pulse Resp B/P (MAP) Pulse Ox O2 Delivery O2 Flow Rate FiO2 01/02/19 09:00 63 177/82 01/02/19 04:00 99.5 18 92 12/31/18 01:05 2.0 12/30/18 23:46 Nasal Cannula I&O- Last 24 Hours up to 6 AM 01/02/19 06:00 Intake Total 1060 ml Output Total 1250 ml Balance -190 ml Laboratory Data 24H LABS Laboratory Tests 2 01/02/19 06:35: Nucleated Red Blood Cells % (auto) 0.3H, Anion Gap 10, Glomerular Filtration Rate > 60.0, Blood Urea Nitrogen 19H, Creatinine 0.61, Sodium Level 141, Potassium Level 4.0, Chloride Level 105, Carbon Dioxide Level 26, Calcium Level 9.0 CBC/BMP Laboratory Tests 01/02/19 06:35 Red Blood Count 3.33 L, Mean Corpuscular Volume 93.4, Mean Corpuscular Hemoglobin 29.7, Mean Corpuscular Hemoglobin Concent 31.8 L, Red Cell Distribution Width 17.2 H, Calcium Level 9.0 Microbiology Microbiology 01/02/19 Blood Culture, Received Pending 01/01/19 Blood Culture - Preliminary, Resulted No growth after 24 hours . All specim... 12/30/18 Blood Culture - Final, Complete Citrobacter Amalonaticus 12/30/18 Blood Culture - Final, Complete Citrobacter Amalonaticus 12/30/18 Urine Culture - Final, Complete Escherichia Coli GME ATTESTATION GME ATTESTATION My faculty preceptor for this patient encounter was physically present during the encounter and was fully available. All aspects of the patient interview, examination, medical decision making process, and medical care plan development were reviewed and approved by the faculty preceptor. The faculty preceptor is aware and concurs with the plan as stated in the body of this note and will attest to such by his/her cosignature. ATTENDING NOTE I did visit with the patient's younger daughter yesterday, but it was not in the presence of the patient at her request. She stated she did want any further goals of care discussions to be had until the health care proxy could present to the hospital today. The healthcare proxy does present today, she informs me of her displeasure, she has been told that the patient was taken off antibiotics and has not been receiving active treatment while hospitalized. I was able to correct her and inform her that there has been no interruption in the patient's care since she has been here. She wishes to know why the patient has been offered hospice, I explained to her the patient has expressed wishes for this to me on multiple occasions and given that it is not an unreasonable request given her terminal diagnosis I felt it prudent to approach the subject. The proxy informs me that they're currently undecided regarding DNR DNI status and are not interested in hospice care at this time. They do request an oncology consultation which I happily comply with, the healthcare proxy who is a nurse request to review the patient's labs with me, we sit and go through each days laboratory studies together she is concerned of the elevated BNP at the time of the patient's presentation and suggested that the patient must be in congestive heart failure I inform her that there is no clinical reason to suspect this and this was several days ago she has received IV fluids since then she is tolerated quite well she is lying flat next was in the bed speaking in complete sentences with no clinical evidence to suggest congestive heart failure. The proxy asked me to check a BNP tomorrow, I did inform her that I do not feel this will change my management given she has no evidence of congestive heart failure and that I would not begin treating the patient any differently should it come back more elevated. I do agree to order laboratory study at the behest of the proxy, she informs me that if the patient developed congestive heart failure 2 or [address] she would want to know that it had been starting here. Greater than 30 minutes spent bedside answering all questions to the satisfaction of the patient proxy and youngest daughter nursing staff did accompany me during this conversation JARED CLAROS DO Jan 02, 2019 14:35 KAYODE OSPINA MD Jan 04, 2019 17:02
[2019-01-02] MEDS ORDERED: SODIUM CHLORIDE NASAL 0.65% SPRAY BTL (OCEAN) PRN (16:15)
--- NOTE | 2019-01-02 16:39 | CR.PDOC ---
General Date of Consultation: Jan 02, 2019 Primary Care Physician Impression full consult dioone dictation to follow Plan cont to treat for imfection \family would like [facility] \ will ask for change in attending in the hosptial \ per family request \ no hospice at this time hold opff on palliative care as they are down their tax credit leasing consultant for 2 weeks Consultation REASON FOR CONSULTATION/CHIEF COMPLAINT: . HISTORY OF PRESENT ILLNESS: . ALLERGIES: Please see below. HOME MEDICATIONS: Please see below. PAST MEDICAL HISTORY: 1. . 2. . PAST SURGICAL HISTORY: 1. 2. FAMILY HISTORY: Father: Mother: Siblings: Children: Hereditary Diseases: Unexpected deaths due to medical reasons: SOCIAL HISTORY: Marital status and/or living arrangements: Children: Employment: Tobacco use: ETOH: Illicit drug use: IV drug use: Other relevant social factors: REVIEW OF SYSTEMS: CONSTITUTIONAL: . HEENT: . CARDIOVASCULAR: . RESPIRATORY: . GENITOURINARY: . MUSCULOSKELETAL: . GASTROINTESTINAL: . SKIN: . NEUROLOGICAL: . PSYCHIATRIC: . ENDOCRINE: . HEMATOLOGIC/LYMPHATIC: . ALLERGIC/IMMUNOLOGIC: . PHYSICAL EXAMINATION: VITAL SIGNS: Please see below. GENERAL APPEARANCE: . HEENT: . RESPIRATORY: . CARDIOVASCULAR: . ABDOMEN: . EXTREMITIES: . NEUROLOGICAL: . PSYCHIATRIC: . LABORATORY DATA: Please see below. ASSESSMENT/PLAN: 1. . 2. . Vital Signs/I&O Vital Signs Date Time Temp Pulse Resp B/P (MAP) Pulse Ox O2 Delivery O2 Flow Rate FiO2 01/02/19 14:00 97.4 61 15 168/68 (101) 93 12/31/18 01:05 2.0 12/30/18 23:46 Nasal Cannula I&O- Last 24 Hours up to 6 AM 01/02/19 06:00 Intake Total 1060 ml Output Total 1250 ml Balance -190 ml Laboratory Data Labs 24H Laboratory Tests 2 01/02/19 06:35: Nucleated Red Blood Cells % (auto) 0.3H, Anion Gap 10, Glomerular Filtration Rate > 60.0, Blood Urea Nitrogen 19H, Creatinine 0.61, Sodium Level 141, Potassium Level 4.0, Chloride Level 105, Carbon Dioxide Level 26, Calcium Level 9.0 CBC/BMP Laboratory Tests 01/02/19 06:35 Red Blood Count 3.33 L, Mean Corpuscular Volume 93.4, Mean Corpuscular Hemoglobin 29.7, Mean Corpuscular Hemoglobin Concent 31.8 L, Red Cell Distribution Width 17.2 H, Calcium Level 9.0 Microbiology Microbiology 01/02/19 Blood Culture, Received Pending 01/01/19 Blood Culture - Preliminary, Resulted No growth after 24 hours . All specim... 12/30/18 Blood Culture - Final, Complete Citrobacter Amalonaticus 12/30/18 Blood Culture - Final, Complete Citrobacter Amalonaticus 12/30/18 Urine Culture - Final, Complete Escherichia Coli Allergies Coded Allergies: Sulfa Drugs (Verified Allergy, Unknown, 01/16/13) Sulfa Drugs Cross Reactors (Verified Allergy, Unknown, 01/16/13) Home Medications Scheduled Ascorbic Acid (Vitamin C) 1,000 Mg Tab, 1,000 MG PO BID, (Reported) Aspirin (Aspirin) 325 Mg Tab, 325 MG PO QHS, (Reported) Bisoprolol Fumarate (Bisoprolol Fumarate) 5 Mg Tab, 2.5 MG PO DAILY, (Reported) Cholecalciferol (D-1000) 1,000 Unit Tab, 1,000 UNIT PO DAILY, (Reported) WITH LUNCH Cranberry Extract (Cranberry) 400 Mg Cap, 400 MG PO BID, (Reported) Cyanocobalamin (B-12) 5,000 Mcg Sub, 5,000 MCG SL DAILY, (Reported) WITH LUNCH Dexamethasone (Dexamethasone) 2 Mg Tab, 2 MG PO TID, (Reported) Ferrous Sulfate (Ferrous Sulfate) 325 Mg Tab, 325 MG PO QHS, (Reported) Glucosamine Hydrochloride (Glucosamine) 1,500 Mg Tab, 1,500 MG PO QPM, (Reported) Ranitidine HCl (Ranitidine HCl) 150 Mg Cap, 1 CAP PO DAILY, (Reported) Sertraline Hcl (Sertraline HCl) 50 Mg Tab, 50 MG PO DAILY, (Reported) Scheduled PRN Acetaminophen (Acetaminophen Extra Stren) 500 Mg Tab, 500 MG PO Q6H PRN for PAIN, (Reported) Naproxen Sodium (Aleve) 220 Mg Tab, 220 MG PO BID PRN for PAIN, (Reported) Michelle Tran MD Jan 02, 2019 16:39
[2019-01-02] MEDS ORDERED: oxyCODONE 5MG TAB PO PRN (16:45)
[2019-01-02] MEDS: FERROUS SULFATE 325MG TAB PO SCH (21:22)
[2019-01-02 22:00] VITALS: BP 148/67
[2019-01-03] VITALS (10 sets, daily range): BP systolic 80–188; BP diastolic 40–90
[2019-01-03] MEDS: IPRATROPIUM 0.5MG/ALBUTEROL 2.5MG INH SOL UD 3ML (DUONEB)(J7620) NEB SCH ×4 (02:00→20:00)
[2019-01-03 06:46] LABS: HEMATOCRIT 33.7 % (36.0-47.0); MEAN CORPUSCULAR HEMOGLOBIN 29.6 pg (27.0-33.0); MEAN CORPUSCULAR HGB CONC 32.6 g/dl (32.0-36.5); MEAN CORPUSCULAR VOLUME 90.8 fl (80.0-96.0); PLATELET COUNT, AUTOMATED 116 10^3/uL (150-450); RED BLOOD COUNT 3.71 10^6/uL (4.00-5.40); WHITE BLOOD COUNT 9.6 10^3/uL (4.0-10.0)
[2019-01-03 07:14] LABS: BLOOD UREA NITROGEN 22 MG/DL (7-18); CALCIUM LEVEL 8.6 MG/DL (8.8-10.2); CARBON DIOXIDE LEVEL 27 MEQ/L (21-32); CHLORIDE LEVEL 104 MEQ/L (98-107); CREATININE FOR GFR 0.56 MG/DL (0.55-1.30); GLOMERULAR FILTRATION RATE > 60.0 (>32); GLUCOSE, FASTING 94 MG/DL (70-100); NT-PRO BNP 2046 PG/ML (<450); POTASSIUM SERUM 4.1 MEQ/L (3.5-5.1); SODIUM LEVEL 138 MEQ/L (136-145)
[2019-01-03] MEDS: DOCUSATE SODIUM 100 MG CAP PO SCH (09:20)
[2019-01-03] MEDS: SERTRALINE HCL 50 MG TAB PO SCH (09:20)
[2019-01-03] MEDS: FAMOTIDINE 20 MG TAB PO SCH (09:20)
[2019-01-03] MEDS: ASCORBIC ACID 500 MG TAB PO SCH ×2 (09:20→20:23)
[2019-01-03] MEDS: BISOPROLOL FUM 2.5 MG PER 1/2TAB PO SCH (09:20)
[2019-01-03] MEDS ORDERED: NS 1,000 ML IV ONE (10:30)
[2019-01-03] MEDS: ACETAMINOPHEN 500 MG TAB PO PRN (11:10)
[2019-01-03] MEDS: VITAMIN D 1,000 INTERNATIONAL UNITS TABLET PO SCH (13:05)
[2019-01-03] MEDS: LevoFLOXacin IV 750 MG in APPROPRIATE DILUENT 1 EA IV SCH (13:05)
[2019-01-03] MEDS ORDERED: MIRALAX *UNIT DOSE* 17GM PACKET PO PRN (13:45)
[2019-01-03] MEDS ORDERED: ISOVUE-370 76% 125ML VIAL (Q9967 PER ML) As Ordered ONE (15:40)
--- NOTE | 2019-01-03 17:07 | CR ---
DATE OF CONSULTATION: 01/03/2019 CONSULTATION REPORT FOR: Dr. Michelle Tran REASON FOR CONSULTATION: Bacteremia. 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 The patient was brought in by her daughter for she was not feeling well. Ms. Grewal states that she had no chest pain, shortness of breath, abdominal pain, constipation, diarrhea, dysuria, urinary frequency, nausea, vomiting. She states though in the last couple of days she has noticed her right hip has sharp, shooting pain that is exacerbated by touch and some movement. She feels like she has a wooden leg, but has good range of motion in the right lower extremity. She admits to using a walker at home which is not new. The only new medication she does have is Decadron which was started in September of 2018, for they did find a cerebellar mass and she just completed her Gamma knife radiation 5 weeks ago. This was done at [facility]. When she saw the radiation oncologist this past Sunday, when she complained of the right lower extremity, they stated that it is probably secondary to her Decadron dose and they were thinking about tapering this. Prior to my examination today, she did have a vasovagal episode earlier on the floor, which the patient stated is common for her. She denies having any shortness of breath, trouble breathing, nausea, vomiting. She does state having some lightheadedness and a little bit of a headache this morning where she was unable to sleep from all the disturbance from the nurses. Since being admitted, her white count has been relatively stable at 9.6. She has been afebrile. Microbiology: Blood cultures times two grew Citrobacter amalonaticus. Her urine culture did grow Escherichia (E) coli even though the patient was not complaining of any dysuria, urinary frequency, or bladder fullness. She was started on Levaquin 750 mg every [address] abdominal pelvic imaging on admission did show bony metastatic lesions on the right upper sacrum and the right iliac bone which is new from 09/16/2018. PAST MEDICAL HISTORY: 1. Metastatic breast cancer with metastases to the lung, brain, and bone status post bilateral mastectomy, chemotherapy, radiation. 2. Hypertension. 3. Hyperlipidemia. 4. Anemia. PAST SURGICAL HISTORY: 1. Hysterectomy. 2. Cholecystectomy. 3. Tonsillectomy. 4. Adenoidectomy. 5. Appendectomy. 6. Bilateral mastectomy 8 years ago. 7. Pacemaker placement. 8. Gamma knife excision of the cerebellar mass September 2018. ALLERGIES: SULFA and SULFA DRUG CROSS-REACTORS. HOME MEDICATIONS: - Tylenol - naproxen - vitamin C - aspirin - bisoprolol - vitamin D - Decadron - iron supplements - ranitidine - sertraline SOCIAL HISTORY: Former smoker. Denies any alcohol or illicit drug use. FAMILY HISTORY: Sister - heart disease and lung cancer. REVIEW OF SYSTEMS: Unless stated above in the history of present illness (HPI), the remaining 12-point review of systems is negative. PHYSICAL EXAMINATION: VITAL SIGNS: Temperature 96.8, pulse 66, respirations 18, blood pressure 188/80 (116), pulse oximetry 96% on 2 liters of oxygen. GENERAL: This is a very pleasant, 83-year-old female, who is awake, alert, and oriented times three, does not appear in acute distress, laying down comfortably in the hospital bed with multiple blankets around her. Her granddaughter, who is the healthcare proxy, and daughter was at bedside to help answer questions. HEENT: Normocephalic, atraumatic. Pupils are equal, round, and reactive. Mucous membranes are pink and moist. CARDIOVASCULAR: Normal S1, S2 sounds, regular rate and rhythm. No audible rubs, clicks, or murmurs noted. RESPIRATORY: Clear to auscultate bilaterally in the upper lobes, slight expiratory wheeze in the lower lobes. No rhonchi or rales appreciated though. ABDOMEN: Soft, nontender to palpation, positive bowel sounds in all four quadrants. No rebounding or guarding noted. There is some tenderness on palpation of the right pelvic bone though which is there at baseline, the patient states that it does not change with palpation. LOWER EXTREMITIES: No lower extremity edema or tenderness. Strong pulses bilaterally. INTEGUMENTARY: No obvious skin breakdown in the anterior portion of the lower extremities. Superficial skin abrasions appreciated on the back of the thigh bilaterally and on the right sacral bone measuring about 2-3 cm in size. LABORATORY DATA: Hematology: WBC 9.6, hemoglobin 11.0, hematocrit 33.7, platelets 116. Chemistry: Sodium 138, potassium 4.1, chloride 104, carbon dioxide 27, anion gap 7, BUN 22, creatinine 0.56, fasting glucose 94, calcium 8.6, proBNP 2046. Microbiology: Blood cultures positive for Citrobacter amalonaticus times two on 12/30/2018. Blood cultures from 01/01/2019 and blood cultures 01/02/2019 negative for growth for 48 and 24 hours, respectively. Urine cultures from 12/30/2018 positive for E. coli. IMAGING: Chest x-ray on 12/30/2018, says findings consistent with progressive pulmonary metastatic disease. Pacemaker in place. Heat CT from 12/30/2018, interval increase in the size in the lower density right cerebellar lesion now measuring 2.6 x 1.9 cm. There is some increased edema in the inferior adjacent right cerebellar hemisphere. Abdominal pelvic CT without IV or by mouth contrast, bony metastatic lesions in the right upper sacrum and right iliac bone new from 09/16/2018. Old healed fracture in the left inferior pubic rami unchanged from comparison study. Left colonic diverticulosis without evidence of diverticulitis. No acute intraabdominal abnormalities. IMPRESSION AND PLAN: This is a pleasant, 83-year-old female with a known past medical history of breast cancer with metastases to the lungs, brain, and now bone (recently diagnosed) who presented to the emergency department (ED) for rigors and chills and we were consulted because she had bacteremia on admission. These are our following recommendations: 1. Bacteremia with culture positive rivera sensitive Citrobacter amalonaticus. This is a gram-negative bacteria which is usually found in the gastrointestinal or genitourinary. She is not complaining of anything in the symptoms such as dysuria, urinary frequency, bladder fullness, nausea, vomiting, diarrhea, constipation. We are unsure of where this is from, if she possibly has a "leaky gut." CT abdomen did show that she has diverticulosis even though she does not have signs of diverticulitis. With her current new complaint of the right-sided hip pain, even though the CT abdomen without contrast did show metastatic lesions, we would like to get a CT of the femur with IV contrast to assess if there is an underlying abscess or possible osteomyelitis that can explain for this gram-negative bacteremia. Unless the CT imaging finding comes back positive for anything, we do recommend by mouth antibiotics Levaquin 500 mg daily for the next 10-14 days from negative blood cultures. 2. Metastatic breast cancer. She has new metastatic lesions found on the pelvis. She has known metastases to the lungs and cerebellum. Dr. Tran is already following the patient and we appreciate her recommendations for further care. For her cerebral edema, she is currently on Decadron 2 mg three times a day. While she is on this, they will continue with gastrointestinal (GI) prophylaxis which is Zantac twice a day. We will leave remaining recommendations from hematology/oncology. My faculty preceptor for this patient encounter was physically present during the encounter and was fully available. All aspects of the patient interview, examination, medical decision making process, and medical care plan development were reviewed and approved by the faculty preceptor. The faculty preceptor is aware and concurs with the plan as stated in the body of this note and will attest to such by his/her cosignature.
--- NOTE | 2019-01-03 18:16 | CR ---
DATE OF CONSULTATION: 01/03/2019 This is a very pleasant white female who was admitted to the hospital due to concerns of increasing weakness, lethargy, and pain, The patient was then admitted due to generalized weakness, fatigue, and increasing right lateral leg pain. The patient has a pertinent past medical history of having been treated for bilateral carcinoma of the breast. The patient's past medical history initially starts back in November 2010, where she was underwent a right and left radical mastectomy. The right breast showed a T2 N0 infiltrating carcinoma with 2/3 lymph nodes. She was ER/GA positive and HER2/channing positive, and the left breast showed T2 N2 infiltrating carcinoma, ER negative, GA negative with 6/7 lymph nodes positive with a grade 3 lymphovascular invasion, and 2/3 lymph nodes were positive. The patient had been given adjuvant chemotherapy with Adriamycin, cyclophosphamide, and paclitaxel followed by maintenance trastuzumab for 1 year in 2010. She was then started on adjuvant endocrine therapy with anastrozole, and she was switched to exemestane and then to tamoxifen due to poor tolerance. The patient had developed in January 2018 worsening back pain, and a bone scan was done to assess for metastatic disease. The patient also had complained of some mental status changes. She had a CT scan of the brain done, which had shown a brain lesion in October 2018. The patient was found to have a solitary 1.7 cm brain metastasis and well underwent whole-brain radiation, or palliative brain radiation therapy. Full-staging workup had been done, and the patient had also shown metastatic pulmonary disease that had apparently been slowly progressing. The patient had opted not to undergo adjuvant systemic therapy for her lung metastasis due to her age and overall outcome. Her treatment has been palliative. The patient had presented to the emergency room on 12/30/2018 complaining of fever, chills, and night sweats. The patient had also had a new complaint of right hip pain radiating down to her knees. A CT scan of the abdomen and pelvis was done in the emergency room, showing lytic lesions in the sacrum as well as the iliac crest, consistent with bony metastatic disease. The patient had a decreased appetite, was taking in few liquids, and was found to be hydrated. The patient had developed a cerebellum aside from her frontal lobe lesion in September 2018 and was treated with gamma knife therapy. The patient had been on Decadron for cerebral edema. Her chest x-ray had shown progressive pulmonary metastatic disease, and a CT scan of the chest had shown an increase in the size of the right cerebellar lesion, which now measures 2 x [address] scan of the abdomen and pelvis showed the bony lesion in the right upper sacrum and iliac bone and an old healed fracture in the left inferior pubic ramus, unchanged from prior comparison. Also, the patient showed some diverticulosis without any signs of inflammation or abdominal pathology. The patient's medications include the following: - acetaminophen 500 mg by mouth every 6 hours as needed - ascorbic acid 1000 mg by mouth twice a day - aspirin 325 mg by mouth at bedtime - bisoprolol fumarate 2.5 mg by mouth daily - cholecalciferol 1000 units by mouth daily - cranberry extract 400 mg by mouth twice a day - cyanocobalamin 5000 units sublingual daily - dexamethasone 2 mg by mouth three times a day - ferrous sulfate 325 mg by mouth at bedtime - glucosamine 1500 mg by mouth every evening - Aleve 220 by mouth twice a day as needed - sertraline 50 mg by mouth daily PAST MEDICAL HISTORY: Above noted in history of present illness (HPI). ALLERGIES: SULFA and SULFA CROSS-REACTING DRUGS. REVIEW OF SYSTEMS: She has generalized weakness, fatigue, lethargy, decreased appetite. She denies any history of any nausea or vomiting. She relates some degree of anxiety but otherwise relates that she does need assistance in some of her activities of daily living. She notes that she does have pain in the right lower leg area with radiation down to the leg, but she can get up and pivot and transfer with assistance. PHYSICAL EXAMINATION: She appears pale, weak, but she is able to discuss with examiner what her concerns are. Her temperature is 96.8, pulse is 66, respiratory rate is 18, blood pressure (BP) is 188/80, pulse oximetry is 96. HEENT: Normocephalic, atraumatic. Pupils equal, round, and reactive to light (PERRL), extraocular muscles intact (EOMI) Sclerae are otherwise white, nonicteric. Oropharynx is otherwise clear. NECK: Supple with no adenopathy. CHEST: Decreased breath sounds at the bases. CARDIOVASCULAR: S1, S2 appreciated with no murmurs. ABDOMEN: Otherwise soft. It is nontender. No ascites. No guarding. No rebound. EXTREMITIES: Show no cyanosis, clubbing, or any edema. The patient has mild discomfort on the right side of the leg. She relates having had generalized pain but no other exacerbation. Weightbearing was not tested. The patient shows on her CT scan of the head an interval increase in the size of a low-density right cerebellar lesion, now measuring to 2 x 6 x 1.9 cm and previously measured 2 x 2 x 1.6 cm. Going on to the CT scan of the abdomen and pelvis, it shows multiple metastatic pulmonary nodules and masses in the lung bases. No focal hepatic lesion is seen. The spleen is unremarkable. No adrenal lesion is observed. The gallbladder is surgically absent. Bone windows show an expansile lesion in the inferior pubic ramus on the left, which is felt to be old healed fracture. It is unchanged from the prior study. There are two adjacent small radiolucencies in the iliac bone on the right above the iliac crest with some cortical breakthrough, consistent with a radiolucent skeletal metastasis. There is also a lesion in the right sacrum. This measures 2 x 5 in its greatest dimension. These findings are new. The patient had a blood culture done on 12/30/2018, which shows his Citrobacter amalonaticus and urine culture showing Escherichia (E) coli. The patient's current antibiotic coverage as Levaquin. On the patient's laboratories, it shows a WBC count of 9.4, hemoglobin of 9.9/31.3, MCV of 93.4, RDW of 17.2, and platelet counts of 109 with 0.3% nucleated RBC. The patient has a neutrophil count of 76. She also has toxic granulation, toxic vacuolation, as well as Dohle bodies. On her serum chemistries, she has a sodium of 141, potassium 4.0, chloride of 105, CO2 of 26, anion gap of 10, BUN of 19, creatinine of 0.61, GFR 60, and fasting glucose of 121. IMPRESSION: At this time is stage IV metastatic carcinoma of the breast, now with osseous metastatic disease with progressive disease also in the lungs as well as progressive disease in the osseous structures and brain, status post gamma knife therapy. The patient has a performance status of Eastern Cooperative Oncology Group (ECOG) scale of 3-4 over 4. The patient is unable to tolerate any chemotherapy, as her performance status is very poor. She currently is being treated for urinary tract infection. I had discussions with the family. The patient was included as well as her two daughters. Hospice was offered to them as an option; however, they have opted out of this and would like to continue with the palliative care option. Pain control management: I have added oxycodone to her medications and will start her on 5 mg immediate release every 4 hours as needed for pain. An infectious disease asked to come on consultation to make sure the patient is on appropriate antibiotic coverage, and patient healthcare administrative assistant has been asked to come in due to some communication issues the patient has had with the attending physician. They have declined the hospice option and are concerned that they have been persistently asked on a daily basis if they have changed their mind, when they have already said no. I would be more than happy to follow this patient with you on an outpatient basis. Consideration for possible radiation to the right hip area will be done after plain films are done. We would like to rule out any localized abscess versus lytic lesion. Radiation treatment will be done on an outpatient basis as needed.
--- NOTE | 2019-01-03 19:33 | REP ---
CT study of the right femur with IV contrast: History: Right hip and thigh pain. Bacteremia. Question abscess. Comparison is made with CT imaging of the abdomen and pelvis from December 30, 2018. CT contrast dose: 100 ml of intravenous Isovue 370. CT findings: The recently noted bony lesion in the right iliac bone is again seen with focal disruption of the posterior lateral cortex of the iliac bone in the supra-acetabular region. This is unchanged from the recent prior study. There is evidence of a lipoma in the anterior periarticular soft tissues of the right hip. No other periarticular mass lesion is seen. No abnormal fluid collection is seen. No joint effusion is seen. No abnormal contrast enhancement is seen in the thigh soft tissues. No other bony destructive lesion is seen. The right femur appears intact. Visualization of the sigmoid colon loops in the pelvis is improved and there is evidence of mural thickening and some pericolonic stranding and even some pericolonic fat air bubbles consistent with diverticulitis of the sigmoid colon. No abscess is visible. There is streakiness in the pericolonic fat. Impression: CT findings with IV contrast demonstrate mural thickening and pericolonic fat streaking along with diverticulosis in the sigmoid colon. This is consistent with diverticulitis. There are a few bubbles of noncontained air in the pericolonic fat anterior to the sigmoid colon loop. No abscess is seen. These changes are more pronounced and better seen when compared with the December 30, 2018 CT study of the pelvis. 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 No other significant finding. The previously noted small right iliac bone skeletal metastatic site is again seen unchanged. Electronically Signed by Cole Bey MD 01/03/2019 10:33 P
[2019-01-03] MEDS: FERROUS SULFATE 325MG TAB PO SCH (20:22)
[2019-01-04] VITALS: BP 158/77
--- NOTE | 2019-01-04 00:24 | IPNPDOC ---
Text Note Date of Service The patient was seen on 01/03/19. NOTE SUBJECTIVE: Patient was seen and examined this morning at 8: 15 am. She was c omfortable . Said that she had a pain pill about 2 hours ago so her right lower quadrant abdominal pain which has been bothering her all night is better. She says she was feeling sleepy and was going to take a nap. This pain is new. New ct scan with contrast was ordered. At about 10:15 am there was a RAT team called for her which was immediately changed to MAX cart. As per her nurse she was on the toilet and trying to get up with the AID with her when she suddenly became nonresponsive with drooling of saliva and staring look with no response. Pulse could not be palpated in the sitting position. 3 of the staff carried her to the bed and laid her down still no pulse could be palpated so MaX cart was called and CPR was started . After about 2 compressions she opened her eyes and woke up. By the time the code team reached the room she was already awake and alert had good pulses and vitals were stable. her BS was 110. There was no confusion after the episode, no seizure like activity noted. Monitor showed paced rhythm. She was moved to PCU for closer monitoring. As per her and her family she has had these kinds of attacks for several years thought to be vasovagal. ultimately she had a loop recorder placed and was diagnosed with SSS and a pacemaker was placed in 2016. OBJECTIVE PHYSICAL EXAMINATION: VITAL SIGNS: Please see below. GENERAL: Patient awake, alert, oriented, appears in no acute distress. She is sitting comfortably in bed HEENT: Normocephalic. Eyes are nonicteric. Trachea is midline. Mucous membranes are pink and moist CARDIOVASCULAR: Normal S1, S2, regular rate and rhythm clicks, rubs or murmurs. RESPIRATORY:. Clear vesicular breath sounds bilaterally with good history effort. No wheezes, rhonchi, rales. ABDOMINAL:, Soft, nontender to palpation. Positive bowel sounds, no rebound tenderness or guarding EXTREMITIES:, No edema. Full equal pulses bilaterally in upper and lower extremities NEUROLOGICAL: No focal neurological deficits PSYCHOLOGICAL: Mood and affect appear appropriate for situation LABORATORY DATA, IMAGING STUDIES, MICROBIOLOGY: Please see below. 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 CT imaging revealed likely lytic bone lesions in the sacrum and iliac crest. Patients family also noted that she has had poor PO intake recently. Vasovagal episode probably due to oxycodone which is new for the patient and got the first dose early this morning. give 1 L of fluid bolus as BP was low moved to PCU for closerer monitoring. Gram negative Bacteremia due to Diverticulitis. With blood culture positive for pansensitive Citrobacter amalonaticus source now looks to be most probably from Diverticulitis which has become prominent in the new CT scan of the femur today. Levofloxacin dosage increased to 500 mg daily will add metronidazole to this. ? Urinary tract infection I am not really sure if she had a UTi as UA showed only 7 WBC but her urine culture did grow E coli > 100K CFU There was no symptoms of dysuria, frequency or burning. Levofloxacin will cover this. Metastatic Breast Cancer H/o bilateral breast cancer diagnosed in 2010 s/p chemotherapy, radiation and hormone therapy. Recently found to have metastasis to the lungs, cerebellum, bone (sacrum and iliac bone) She currently is not receiving treatment. The patient accompanied by her two daughters was introduced to the idea of hospice care. The patient has voiced that she would prefer to be home and not have invasive treatments. The patients family has been in contact with hospice services. Patient and her family have discussed Hospice and at this time are going to decline going home on hospice. Patients health care proxy has traveled down. Patient has yet to fill out a MOLST form however, one has been made available for them Patient will be continued on Decadron for cerebellar swelling secondary to recent gamma knife treatment Thrombocytopenia Patients platelets have decreased over her stay. Aspirin, Heparin, and Rocephin were discontinued. Patients platlets are trending up. History of Hypertension Continue home bisoprolol. takes at night SSS s/p pacemaker in 2016 no issues. Iron Deficiency Anemia Continue ferrous sulfate GERD Continue ranitidine Depression/Anxiety Continue Zoloft DVT prophylaxis Discontinued secondary to thrombocytopenia DISPOSITION: Likely discharge after clinical improvement and after PT clearance VS,Fishbone, I+O VS, Fishbone, I+O Laboratory Tests 01/03/19 06:35 Red Blood Count 3.71 L, Mean Corpuscular Volume 90.8, Mean Corpuscular Hemoglobin 29.6, Mean Corpuscular Hemoglobin Concent 32.6, Red Cell Distribution Width 16.8 H, Calcium Level 8.6 L Vital Signs Date Time Temp Pulse Resp B/P (MAP) Pulse Ox O2 Delivery O2 Flow Rate FiO2 01/03/19 12:29 69 158/82 (107) 01/03/19 12:00 96.8 18 96 2.0 12/30/18 23:46 Nasal Cannula I&O- Last 24 Hours up to 6 AM 01/03/19 06:00 Intake Total 560 ml Output Total 1850 ml Balance -1290 ml JAYDEN BROWN MD Jan 03, 2019 15:10
[2019-01-04] MEDS: metroNIDAZOLE 500 MG in APPROPRIATE DILUENT 1 EA IV SCH ×4 (01:18→23:03)
[2019-01-04] MEDS: IPRATROPIUM 0.5MG/ALBUTEROL 2.5MG INH SOL UD 3ML (DUONEB)(J7620) NEB SCH ×4 (02:00→20:00)
[2019-01-04 03:31] VITALS: BP 157/73
[2019-01-04 05:06] LABS: HEMATOCRIT 37.6 % (36.0-47.0); HEMOGLOBIN 12.1 g/dl (12.0-15.5); MEAN CORPUSCULAR HEMOGLOBIN 29.5 pg (27.0-33.0); MEAN CORPUSCULAR HGB CONC 32.2 g/dl (32.0-36.5); MEAN CORPUSCULAR VOLUME 91.7 fl (80.0-96.0); PLATELET COUNT, AUTOMATED 145 10^3/uL (150-450); WHITE BLOOD COUNT 12.4 10^3/uL (4.0-10.0)
[2019-01-04 05:26] LABS: BLOOD UREA NITROGEN 20 MG/DL (7-18); CALCIUM LEVEL 8.9 MG/DL (8.8-10.2); CARBON DIOXIDE LEVEL 25 MEQ/L (21-32); CHLORIDE LEVEL 100 MEQ/L (98-107); CREATININE FOR GFR 0.52 MG/DL (0.55-1.30); GLOMERULAR FILTRATION RATE > 60.0 (>32); GLUCOSE, FASTING 79 MG/DL (70-100); POTASSIUM SERUM 3.9 MEQ/L (3.5-5.1); SODIUM LEVEL 137 MEQ/L (136-145)
[2019-01-04 08:00] VITALS: BP 137/76
[2019-01-04 08:37] LABS: CPK CREATINE PHOSPHOKINASE 21 U/L (26-192); MB/CK RELATIVE INDEX 5.71 (< OR =4); TROPONIN I < 0.02 NG/ML (< 0.10)
[2019-01-04] MEDS: DOCUSATE SODIUM 100 MG CAP PO SCH (08:45)
[2019-01-04] MEDS: ASCORBIC ACID 500 MG TAB PO SCH ×2 (08:45→20:48)
[2019-01-04] MEDS: SERTRALINE HCL 50 MG TAB PO SCH (08:45)
[2019-01-04] MEDS: FAMOTIDINE 20 MG TAB PO SCH (08:45)
[2019-01-04] MEDS: FONDAPARINUX SODIUM 2.5 MG/0.5 ML SYR (J1652 PER 0.5MG) SC SCH (10:30)
[2019-01-04 12:00] VITALS: BP_SYST 132; BP_SYST 98; BP_DIAS 58; BP_DIAS 68
[2019-01-04] MEDS: VITAMIN D 1,000 INTERNATIONAL UNITS TABLET PO SCH (12:08)
[2019-01-04] MEDS: LevoFLOXacin 500 MG TABLET PO SCH (12:08)
[2019-01-04 14:38] LABS: CK-MB VALUE MASS < 1.0 NG/ML (<3.6); CPK CREATINE PHOSPHOKINASE 20 U/L (26-192); TROPONIN I < 0.02 NG/ML (< 0.10)
[2019-01-04 16:00] VITALS: BP 140/71
[2019-01-04] MEDS ORDERED: LR 1,000 ML IV SCH (19:00)
[2019-01-04 20:00] VITALS: BP 143/69
[2019-01-04] MEDS: BISOPROLOL FUM 2.5 MG PER 1/2TAB PO SCH (20:48)
[2019-01-04] MEDS: FERROUS SULFATE 325MG TAB PO SCH (20:48)
[2019-01-04] MEDS: ACETAMINOPHEN 500 MG TAB PO PRN (23:02)
[2019-01-05] VITALS (8 sets, daily range): BP systolic 110–173; BP diastolic 60–86
[2019-01-05] MEDS: IPRATROPIUM 0.5MG/ALBUTEROL 2.5MG INH SOL UD 3ML (DUONEB)(J7620) NEB SCH ×5 (02:00→23:52)
[2019-01-05 06:19] LABS: HEMATOCRIT 35.7 % (36.0-47.0); HEMOGLOBIN 11.7 g/dl (12.0-15.5); MEAN CORPUSCULAR HGB CONC 32.8 g/dl (32.0-36.5); MEAN CORPUSCULAR VOLUME 91.5 fl (80.0-96.0); PLATELET COUNT, AUTOMATED 152 10^3/uL (150-450); WHITE BLOOD COUNT 14.5 10^3/uL (4.0-10.0)
[2019-01-05 06:44] LABS: BLOOD UREA NITROGEN 23 MG/DL (7-18); CALCIUM LEVEL 9.5 MG/DL (8.8-10.2); CARBON DIOXIDE LEVEL 28 MEQ/L (21-32); CHLORIDE LEVEL 98 MEQ/L (98-107); CREATININE FOR GFR 0.54 MG/DL (0.55-1.30); GLOMERULAR FILTRATION RATE > 60.0 (>32); GLUCOSE, FASTING 155 MG/DL (70-100); POTASSIUM SERUM 3.6 MEQ/L (3.5-5.1); SODIUM LEVEL 135 MEQ/L (136-145)
--- NOTE | 2019-01-05 07:38 | ECHO ---
DATE OF STUDY: 01/04/2019 REFERRING PHYSICIAN: Lise Scott MD INDICATION: Syncope. HEIGHT: 162 cm WEIGHT: 59 kg 2D MEASUREMENTS: Left atrium: 3.8 cm Aortic root: 2.8 cm LVOT: 1.9 cm Inferior septum: 0.75 cm Posterior wall: 0.90 cm Left ventricle diastole: 3.6 cm Inferior vena cava: 1.0 cm DOPPLER MEASUREMENTS: Aortic valve velocity: 112 cm/s LVOT velocity: 79.1 cm/s Mitral E velocity: 48.5 cm/s Mitral A velocity: 79.2 cm/s Mitral deceleration time: 303 ms Mild tricuspid regurgitation. Estimated right ventricle systolic pressure: 22-27 mmHg assuming a right pressure of 0-5 mmHg MITRAL ANNULAR TISSUE DOPPLER: E prime septal: 3.8 cm/s E prime lateral: 4.4 cm/s DESCRIPTION: Rhythm was sinus. Some PACs were observed. Image quality was fair. No pericardial effusion. This was a 2D, M-mode, color flow Doppler and pulse wave Doppler examination and included mitral annular tissue Doppler. CONCLUSIONS: 1. Normal left ventricle internal dimensions and wall thickness. Normal regional left ventricle (LV) wall motion and wall thickening. Normal LV systolic function. Left ventricular ejection fraction (LVEF) 65% by visual estimate. Grade 1 LV diastolic dysfunction (impaired relaxation filling pattern). 2. Low central venous pressure. Central venous pressure estimated to be 0-5 mmHg at the time of the study. 3. Mild aortic valve sclerosis of a three-cuspid aortic valve. No aortic regurgitation. 4. Mild mitral annular calcification. No mitral regurgitation detected. 5. Otherwise, normal-appearing echocardiogram Doppler findings.
--- NOTE | 2019-01-05 09:56 | IPN ---
DATE OF SERVICE: 01/04/2019 The patient seen and examined. Reported lethargy. Denies any chest pain, pressure, or discomfort. Denies any shortness of breath. VITAL SIGNS: Temperature 97.2, pulse 82, respiration 18, blood pressure 140/70, pulse oximetry 96% on 2 liters nasal cannula. LABORATORY: WBC 12.4, hemoglobin and hematocrit 12.1/37.6, platelets 145. Chemistry: Sodium 137, potassium 3.9, chloride 100, bicarbonate 25, BUN 20, creatinine 0.52. PHYSICAL EXAMINATION: GENERAL: The patient alert, comfortable, in no acute distress. HEENT: Normocephalic, atraumatic. CARDIAC: Regular, S1, S2. No murmurs, gallops, or rubs. RESPIRATORY: Bilaterally clear. No wheezing, rales, or rhonchi. ABDOMEN: Soft, nontender, positive bowel sounds. EXTREMITIES: No edema bilateral lower extremities. ASSESSMENT AND PLAN: This is an 83-year-old female patient with past medical history of breast cancer, status post bilateral mastectomy, sick sinus syndrome with pacemaker in 2016, hypertension, dyslipidemia, anemia, vasovagal syncopal episodes, recently found to have metastases to the patient's lung, cerebellum, status post gamma knife treatment, presented to the emergency department (ED) with complaints of chills, right hip pain radiating down to the right leg, generalized weakness. CT scan revealed lytic bone lesion in the sacrum and iliac crest. Has also poor oral intake. PROBLEMS: 1. Vasovagal syncope episodes with orthostatic hypotension, possible due to oxycodone. Additional intravenous (IV) fluids have been ordered. Followup orthostasis. Telemetry monitoring. Echocardiogram has also been ordered for additional workup. Serial cardiac enzymes have been negative. 2. Gram negative bacteremia due to diverticulitis. Blood culture positive. Pansensitive citrobacter. Probable secondary to diverticulitis, prominent in CT scan of the femur. Levaquin and flagyl for now. 3. Urinary tract infection (UTI). Cultures appreciated. Sensitive to Levaquin. Further recommendation as per infectious disease. 4. Metastatic breast cancer. History of bilateral breast cancer diagnosed in 2010. Status post chemotherapy and radiation and hormonal therapy. Recently found to have metastases to the lung, cerebellum, bone, sacral and the iliac bones. Not receiving any treatment at this time. The patient, apparently, as per previous provider, there were some disagreements regarding patient and family wishes regarding hospice care versus aggressive treatment. Will defer further such discussion to the patient's oncologist and primary care providers, given the disagreements within the family and the dynamics of family structure. Decadron for cerebellar swelling secondary to recent gamma knife treatment. 5. Thrombocytopenia. Will monitor the patient. Platelets seem to be improved. Avoid heparin. 6. History of hypertension. Continue bisoprolol. Monitor blood pressure. 7. Sick sinus syndrome. The patient on pacemaker 2015. 8. Iron-deficiency anemia. Continue supplementation. 9. Gastroesophageal reflux disease (GERD). Continue current medication. 10. Anxiety and depression. Continue current medication. 11. Deep venous thrombosis (DVT) prophylaxis. Arixtra given thrombocytopenia. DISPOSITION: Pending final infectious disease (ID) recommendation, as well as physical therapy. Will monitor the patient under telemetry for 48 hours. Echocardiogram has been done, pending report.
[2019-01-05] MEDS ORDERED: POTASSIUM CHLORIDE 10 MEQ SR TABLET PO ONE (10:00)
[2019-01-05] MEDS ORDERED: NS 1,000 ML IV SCH (10:00)
[2019-01-05] MEDS: SERTRALINE HCL 50 MG TAB PO SCH (10:03)
[2019-01-05] MEDS: DOCUSATE SODIUM 100 MG CAP PO SCH (10:03)
[2019-01-05] MEDS: ASCORBIC ACID 500 MG TAB PO SCH ×2 (10:03→21:00)
[2019-01-05] MEDS: FAMOTIDINE 20 MG TAB PO SCH (10:03)
[2019-01-05] MEDS: FONDAPARINUX SODIUM 2.5 MG/0.5 ML SYR (J1652 PER 0.5MG) SC SCH (10:03)
[2019-01-05] MEDS: metroNIDAZOLE 500 MG in APPROPRIATE DILUENT 1 EA IV SCH ×2 (10:04→15:10)
[2019-01-05] MEDS: VITAMIN D 1,000 INTERNATIONAL UNITS TABLET PO SCH (11:55)
[2019-01-05] MEDS: LevoFLOXacin 500 MG TABLET PO SCH (11:55)
[2019-01-05] MEDS: ACETAMINOPHEN 500 MG TAB PO PRN (15:10)
--- NOTE | 2019-01-05 16:19 | IPNPDOC ---
Text Note Date of Service The patient was seen on 01/05/19. NOTE The patient seen and examined. Reported lethargy. Denies any chest pain, pressure, or discomfort. Denies any shortness of breath. Family reported more energy today. Orthostatic positive. Encourage OOB, encourage ambulation. PHYSICAL EXAMINATION: GENERAL: The patient alert, comfortable, in no acute distress. HEENT: Normocephalic, atraumatic. CARDIAC: Regular, S1, S2. No murmurs, gallops, or rubs. RESPIRATORY: Bilaterally clear. No wheezing, rales, or rhonchi. ABDOMEN: Soft, nontender, positive bowel sounds. EXTREMITIES: No edema bilateral lower extremities. ASSESSMENT AND PLAN: This is an 83-year-old female patient with past medical history of breast cancer, status post bilateral mastectomy, sick sinus syndrome with pacemaker in 2016, hypertension, dyslipidemia, anemia, vasovagal syncopal episodes, recently found to have metastases to the patient's lung, cerebellum, status post gamma knife treatment, presented to the emergency department (ED) with complaints of chills, right hip pain radiating down to the right leg, generalized weakness. CT scan revealed lytic bone lesion in the sacrum and iliac crest. Has also poor oral intake. PROBLEMS: 1. Vasovagal syncope episodes with orthostatic hypotension, possible due to oxycodone. Additional intravenous (IV) fluids have been ordered. Followup orthostasis. Telemetry monitoring. Echocardiogram WNL. Serial cardiac enzymes have been negative. consider holding beta cecelia if orthostasis not improve with IVF. 2. Gram negative bacteremia due to diverticulitis. Blood culture positive. Pansensitive citrobacter. Probable secondary to diverticulitis, prominent in CT scan of the femur. Levaquin and flagyl for now. CRP. 3. Urinary tract infection (UTI). Cultures appreciated. Sensitive to Levaquin. Further recommendation as per infectious disease. 4. Metastatic breast cancer. History of bilateral breast cancer diagnosed in 2010. Status post chemotherapy and radiation and hormonal therapy. Recently found to have metastases to the lung, cerebellum, bone, sacral and the iliac bones. Not receiving any treatment at this time. The patient, apparently, as per previous provider, there were some disagreements regarding patient and family wishes regarding hospice care versus aggressive treatment. Will defer further such discussion to the patient's oncologist and primary care providers, given the disagreements within the family and the dynamics of family structure. Decadron for cerebellar swelling secondary to recent gamma knife treatment. 5. Thrombocytopenia. Will monitor the patient. Platelets seem to be improved. Avoid heparin. 6. History of hypertension. Continue bisoprolol. Monitor blood pressure. consider holding bisoprolol if BP not improved with IVF. 7. Sick sinus syndrome. The patient on pacemaker 2015. 8. Iron-deficiency anemia. Continue supplementation. 9. Gastroesophageal reflux disease (GERD). Continue current medication. 10. Anxiety and depression. Continue current medication. 11. Deep venous thrombosis (DVT) prophylaxis. Arixtra given thrombocytopenia. DISPOSITION: Pending final infectious disease (ID) recommendation, as well as physical therapy. Will monitor the patient under telemetry for 48 hours. Advance cancer, deconditioning, poor fpc prognosis. VS,Fishbone, I+O VS, Fishbone, I+O Laboratory Tests 01/05/19 06:00 Red Blood Count 3.90 L, Mean Corpuscular Volume 91.5, Mean Corpuscular Hemoglobin 30.0, Mean Corpuscular Hemoglobin Concent 32.8, Red Cell Distribution Width 16.7 H, Calcium Level 9.5 Vital Signs Date Time Temp Pulse Resp B/P (MAP) Pulse Ox O2 Delivery O2 Flow Rate FiO2 01/05/19 12:00 2.0 01/05/19 12:00 97.7 62 20 158/72 (100) 97 12/30/18 23:46 Nasal Cannula I&O- Last 24 Hours up to 6 AM 01/05/19 06:00 Intake Total 440 ml Output Total 950 ml Balance -510 ml ROXIE VALLEJO MD Jan 05, 2019 16:19
[2019-01-05] MEDS: BISOPROLOL FUM 2.5 MG PER 1/2TAB PO SCH (21:00)
[2019-01-05] MEDS: FERROUS SULFATE 325MG TAB PO SCH (21:00)
[2019-01-06] VITALS (11 sets, daily range): BP systolic 96–164; BP diastolic 60–82
[2019-01-06 05:40] LABS: HEMOGLOBIN 10.9 g/dl (12.0-15.5); MEAN CORPUSCULAR HEMOGLOBIN 29.1 pg (27.0-33.0); MEAN CORPUSCULAR HGB CONC 32.1 g/dl (32.0-36.5); MEAN CORPUSCULAR VOLUME 90.9 fl (80.0-96.0); PLATELET COUNT, AUTOMATED 182 10^3/uL (150-450); RED BLOOD COUNT 3.74 10^6/uL (4.00-5.40); WHITE BLOOD COUNT 15.7 10^3/uL (4.0-10.0)
[2019-01-06 06:02] LABS: BLOOD UREA NITROGEN 18 MG/DL (7-18); CALCIUM LEVEL 8.4 MG/DL (8.8-10.2); CARBON DIOXIDE LEVEL 26 MEQ/L (21-32); CHLORIDE LEVEL 101 MEQ/L (98-107); GLOMERULAR FILTRATION RATE > 60.0 (>32); GLUCOSE, FASTING 121 MG/DL (70-100); MAGNESIUM LEVEL 1.8 MG/DL (1.8-2.4); PREALBUMIN 11.3 MG/DL (20.0-40.0); SODIUM LEVEL 135 MEQ/L (136-145)
[2019-01-06] MEDS: metroNIDAZOLE 500 MG in APPROPRIATE DILUENT 1 EA IV SCH ×4 (08:05→16:36)
[2019-01-06] MEDS: FAMOTIDINE 20 MG TAB PO SCH (08:06)
[2019-01-06] MEDS: SERTRALINE HCL 50 MG TAB PO SCH (08:06)
[2019-01-06] MEDS: FONDAPARINUX SODIUM 2.5 MG/0.5 ML SYR (J1652 PER 0.5MG) SC SCH (08:06)
[2019-01-06] MEDS: ASCORBIC ACID 500 MG TAB PO SCH ×2 (08:06→20:40)
[2019-01-06] MEDS: DOCUSATE SODIUM 100 MG CAP PO SCH (08:06)
[2019-01-06] MEDS: IPRATROPIUM 0.5MG/ALBUTEROL 2.5MG INH SOL UD 3ML (DUONEB)(J7620) NEB SCH ×3 (08:26→20:00)
[2019-01-06] MEDS: LevoFLOXacin 500 MG TABLET PO SCH (11:58)
[2019-01-06] MEDS: VITAMIN D 1,000 INTERNATIONAL UNITS TABLET PO SCH (11:58)
[2019-01-06] MEDS: ACETAMINOPHEN 500 MG TAB PO PRN (14:48)
--- NOTE | 2019-01-06 18:18 | IPNPDOC ---
Text Note Date of Service The patient was seen on 01/06/19. NOTE The patient seen and examined. Reported lethargy. Denies any chest pain, pressure, or discomfort. Denies any shortness of breath. Orthostatic positive. Encourage OOB, encourage ambulation. PHYSICAL EXAMINATION: GENERAL: The patient alert, comfortable, in no acute distress. HEENT: Normocephalic, atraumatic. CARDIAC: Regular, S1, S2. No murmurs, gallops, or rubs. RESPIRATORY: Bilaterally clear. No wheezing, rales, or rhonchi. ABDOMEN: Soft, nontender, positive bowel sounds. EXTREMITIES: No edema bilateral lower extremities. ASSESSMENT AND PLAN: This is an 83-year-old female patient with past medical history of breast cancer, status post bilateral mastectomy, sick sinus syndrome with pacemaker in 2016, hypertension, dyslipidemia, anemia, vasovagal syncopal episodes, recently found to have metastases to the patient's lung, cerebellum, status post gamma knife treatment, presented to the emergency department (ED) with complaints of chills, right hip pain radiating down to the right leg, generalized weakness. CT scan revealed lytic bone lesion in the sacrum and iliac crest. Has also poor oral intake. PROBLEMS: 1. Vasovagal syncope episodes with orthostatic hypotension, possible due to oxycodone. Additional intravenous (IV) fluids have been ordered. Followup orthostasis. Telemetry monitoring. Echocardiogram WNL. Serial cardiac enzymes have been negative. hold bisoprolol for standing SBP<120. will access if holding bisoprolol helps with bp. . 2. Gram negative bacteremia due to diverticulitis. Blood culture positive. Pansensitive citrobacter. Probable secondary to diverticulitis, prominent in CT scan of the femur. Levaquin and flagyl for now. CRP. 3. Urinary tract infection (UTI). Cultures appreciated. Sensitive to Le vaquin. Further recommendation as per infectious disease. 4. Metastatic breast cancer. History of bilateral breast cancer diagnosed in 2010. Status post chemotherapy and radiation and hormonal therapy. Recently found to have metastases to the lung, cerebellum, bone, sacral and the iliac bones. Not receiving any treatment at this time. The patient, apparently, as per previous provider, there were some disagreements regarding patient and family wishes regarding hospice care versus aggressive treatment. Will defer further such discussion to the patient's oncologist and primary care providers, given the disagreements within the family and the dynamics of family structure. Decadron for cerebellar swelling secondary to recent gamma knife treatment. 5. Thrombocytopenia. Will monitor the patient. Platelets seem to be improved. Avoid heparin. 6. History of hypertension. Will hold bisoprolol for standing SPB<120. Monitor blood pressure. 7. Sick sinus syndrome. The patient on pacemaker 2015. 8. Iron-deficiency anemia. Continue supplementation. 9. Gastroesophageal reflux disease (GERD). Continue current medication. 10. Anxiety and depression. Continue current medication. 11. Deep venous thrombosis (DVT) prophylaxis. Arixtra given thrombocytopenia. DISPOSITION: Pending final infectious disease (ID) recommendation, as well as physical therapy. Advance cancer, deconditioning, poor usp prognosis. VS,Rafatbone, I+O VS, Fishbone, I+O Laboratory Tests 01/06/19 05:20 Red Blood Count 3.74 L, Mean Corpuscular Volume 90.9, Mean Corpuscular Hemoglobin 29.1, Mean Corpuscular Hemoglobin Concent 32.1, Red Cell Distribution Width 16.9 H, Calcium Level 8.4 L Vital Signs Date Time Temp Pulse Resp B/P (MAP) Pulse Ox O2 Delivery O2 Flow Rate FiO2 01/06/19 16:22 85 132/62 (85) 91 124/62 (82) 90 107/60 (76) 01/06/19 16:00 1.0 01/06/19 16:00 97.2 18 96 01/06/19 08:26 Nasal Cannula I&O- Last 24 Hours up to 6 AM 01/06/19 06:00 Intake Total 2610 ml Output Total 1100 ml Balance 1510 ml ROXIE VALLEJO MD Jan 06, 2019 18:18
--- NOTE | 2019-01-06 19:35 | IPN ---
DATE:01/06/2019 Mrs. Grewal not feeling very well today. She was having some bladder spasm. She was also orthostatic. Her blood pressure dropped from 140-105 while standing. She denies any chest pain or shortness of breath. On physical exam temperature is 97.2, pulse 85, respirations 18, blood pressure 136/62 laying down 107 standing with O2 sat of 96% on 2 liters nasal cannula. Heart: Normal S1-S2. No murmurs. Lungs: Diminished breath sounds. Abdomen: Mildly tender in the suprapubic area. Labs that white count 15.7, hemoglobin 10.9, hematocrit 34, platelets 182. Sodium 135, potassium 4, chloride 101, bicarb 26, BUN 18, creatinine 0.5, glucose 121, calcium 8.4, magnesium 1.8, CRP 16 down from 24.7, blood cultures Citrobacter times two sets. Urine culture E-coli repeat blood culture on 01/[address] femur with contrast shows findings of marrow thickening and pericolonic fat streaking along with diverticulosis of the sigmoid colon. This is consistent with diverticulitis. IMPRESSION: 1. Diverticulitis with secondary Citrobacter bacteremia on by mouth Levaquin and IV Flagyl. 2. E-coli bacteruria. Currently the patient is having bladder spasms so she might be having a urinary tract infection on by mouth Levaquin. E-coli susceptible. 3. Orthostatic hypotension due to poor intake. 4. Breast cancer with metastasis to pelvic bones and lungs. PLAN: Continue the by mouth Levaquin as she is on IV Flagyl which also could be switched to oral 500 mg by mouth three times a day, both could be given for a total of 10 days. Discussion about palliative / hospice care with the hospitalist. Infectious disease signing off. Prognosis poor with metastatic lung with metastatic breast cancer to the pelvis and lungs. Discussion of palliative care is being done with the hospitalist.
[2019-01-06] MEDS: BISOPROLOL FUM 2.5 MG PER 1/2TAB PO SCH ×2 (20:35→20:42)
[2019-01-06] MEDS: FERROUS SULFATE 325MG TAB PO SCH (20:40)
[2019-01-06] MEDS: metroNIDAZOLE (FLAGYL) 500 MG TAB PO SCH (20:40)
[2019-01-07] VITALS (18 sets, daily range): BP systolic 79–165; BP diastolic 42–95
[2019-01-07] MEDS: ACETAMINOPHEN 500 MG TAB PO PRN ×2 (00:22→08:39)
[2019-01-07] MEDS: IPRATROPIUM 0.5MG/ALBUTEROL 2.5MG INH SOL UD 3ML (DUONEB)(J7620) NEB SCH ×4 (02:00→20:37)
[2019-01-07 05:59] LABS: HEMATOCRIT 34.6 % (36.0-47.0); HEMOGLOBIN 11.3 g/dl (12.0-15.5); MEAN CORPUSCULAR HEMOGLOBIN 29.7 pg (27.0-33.0); MEAN CORPUSCULAR HGB CONC 32.7 g/dl (32.0-36.5); MEAN CORPUSCULAR VOLUME 91.1 fl (80.0-96.0); PLATELET COUNT, AUTOMATED 219 10^3/uL (150-450); WHITE BLOOD COUNT 15.4 10^3/uL (4.0-10.0)
[2019-01-07] MEDS: metroNIDAZOLE (FLAGYL) 500 MG TAB PO SCH (06:14)
[2019-01-07 06:25] LABS: ALBUMIN 1.9 GM/DL (3.2-5.2); ALT/SGPT 46 U/L (12-78); BILIRUBIN,TOTAL 0.4 MG/DL (0.2-1.0); BLOOD UREA NITROGEN 17 MG/DL (7-18); C REACTIVE PROTEIN QUANTITATIV 9.32 MG/DL (0.00-0.30); CALCIUM LEVEL 8.5 MG/DL (8.8-10.2); CARBON DIOXIDE LEVEL 29 MEQ/L (21-32); CHLORIDE LEVEL 98 MEQ/L (98-107); CREATININE FOR GFR 0.51 MG/DL (0.55-1.30); GLOMERULAR FILTRATION RATE > 60.0 (>32); GLUCOSE, FASTING 138 MG/DL (70-100); MAGNESIUM LEVEL 1.9 MG/DL (1.8-2.4); POTASSIUM SERUM 3.5 MEQ/L (3.5-5.1); SODIUM LEVEL 135 MEQ/L (136-145); TOTAL PROTEIN 5.7 GM/DL (6.4-8.2)
[2019-01-07] MEDS: DOCUSATE SODIUM 100 MG CAP PO SCH (08:28)
[2019-01-07] MEDS: SERTRALINE HCL 50 MG TAB PO SCH (08:29)
[2019-01-07] MEDS: FAMOTIDINE 20 MG TAB PO SCH (08:29)
[2019-01-07] MEDS: ASCORBIC ACID 500 MG TAB PO SCH ×2 (08:30→20:34)
[2019-01-07] MEDS: FONDAPARINUX SODIUM 2.5 MG/0.5 ML SYR (J1652 PER 0.5MG) SC SCH (08:30)
[2019-01-07] MEDS ORDERED: POTASSIUM CHLORIDE 10 MEQ SR TABLET PO ONE (08:45)
[2019-01-07] MEDS ORDERED: NS 1,000 ML IV ONE (11:30)
[2019-01-07 11:40] LABS: ABG BASE EXCESS -0.6 (-2.0-2.0); ABG HCO3 25.7 MEQ/L (22.0-26.0); ABG PARTIAL PRESSURE CO2 49.1 mmHg (35.0-45.0); ABG PARTIAL PRESSURE O2 74.2 mmHg (75.0-100.0); ABG STANDARD HCO3 23.9 MEQ/L (22.0-26.0); ABG TOTAL CO2 27.2 MEQ/L (23.0-31.0); ABG pH (ARTERIAL) 7.337 UNITS (7.350-7.450)
[2019-01-07] MEDS ORDERED: levETIRAcetam INJection 500 MG in D5W MINI-BAG PLUS 100 ML IV SCH (12:00)
[2019-01-07] MEDS ORDERED: METOPROLOL 5 MG/5 ML VIAL IV STA (12:21)
[2019-01-07] MEDS ORDERED: DIGOXIN INJ 0.5 MG/2 ML AMP (J1160) IV STA (12:29)
[2019-01-07] MEDS ORDERED: ISOVUE-370 76% 125ML VIAL (Q9967 PER ML) As Ordered ONE (12:39)
[2019-01-07 12:52] LABS: BASO # 0.1 10^3/uL (0.0-0.2); BASO % 0.2 % (0.0-1.0); EOS % 0.1 % (0.0-3.0); HEMATOCRIT 33.2 % (36.0-47.0); HEMOGLOBIN 10.8 g/dl (12.0-15.5); LYMPH # 0.4 10^3/uL (1.5-4.5); LYMPH % 2.2 % (24.0-44.0); MEAN CORPUSCULAR HEMOGLOBIN 29.8 pg (27.0-33.0); MEAN CORPUSCULAR HGB CONC 32.5 g/dl (32.0-36.5); MEAN CORPUSCULAR VOLUME 91.7 fl (80.0-96.0); MONO # 0.5 10^3/uL (0.0-0.8); MONO % 2.6 % (0.0-5.0); NEUTROPHILS # 18.9 10^3/uL (1.8-7.7); PLATELET COUNT, AUTOMATED 216 10^3/uL (150-450); RED BLOOD COUNT 3.62 10^6/uL (4.00-5.40); WHITE BLOOD COUNT 20.3 10^3/uL (4.0-10.0)
[2019-01-07] MEDS ORDERED: LevoFLOXacin IV 500 MG in APPROPRIATE DILUENT 1 EA IV SCH (13:00)
[2019-01-07] MEDS ORDERED: PANTOPRAZOLE 40MG INJ (PROTONIX) (C9113) IV SCH (13:00)
[2019-01-07 13:41] LABS: ALT/SGPT 44 U/L (12-78); BILIRUBIN,TOTAL 0.4 MG/DL (0.2-1.0); BLOOD UREA NITROGEN 15 MG/DL (7-18); CARBON DIOXIDE LEVEL 25 MEQ/L (21-32); CHLORIDE LEVEL 98 MEQ/L (98-107); CPK CREATINE PHOSPHOKINASE 29 U/L (26-192); CREATININE FOR GFR 0.55 MG/DL (0.55-1.30); GLOMERULAR FILTRATION RATE > 60.0 (>32); GLUCOSE, FASTING 175 MG/DL (70-100); MAGNESIUM LEVEL 1.8 MG/DL (1.8-2.4); MB/CK RELATIVE INDEX 9.66 (< OR =4); POTASSIUM SERUM 3.3 MEQ/L (3.5-5.1); PROLACTIN 16.4 NG/ML; SODIUM LEVEL 133 MEQ/L (136-145); TOTAL PROTEIN 4.9 GM/DL (6.4-8.2); TROPONIN I 0.02 NG/ML (< 0.10)
[2019-01-07] MEDS: VITAMIN D 1,000 INTERNATIONAL UNITS TABLET PO SCH (13:43)
--- NOTE | 2019-01-07 13:50 | REP ---
PORTABLE CHEST X-RAY: Single view. HISTORY: Central venous line. COMPARISON STUDY: December 30, 2018. FINDINGS: A bipolar pacemaker is seen in place. EKG electrodes are noted. A right internal jugular central venous line has been inserted and is seen terminating in the expected location of the superior vena cava. Multiple pulmonary nodules and masses are again seen throughout the lung zacarias. There are surgical clips in the axillary soft tissues bilaterally. Heart is somewhat enlarged unchanged. No pneumothorax is seen. IMPRESSION: Right internal jugular central venous line in place. No complication is identified. Electronically Signed by Cole Bey MD 01/07/2019 03:04 P
[2019-01-07] MEDS ORDERED: LR 1,000 ML IV SCH (14:00)
[2019-01-07] MEDS: metroNIDAZOLE 500 MG in APPROPRIATE DILUENT 1 EA IV SCH ×2 (14:19→23:05)
--- NOTE | 2019-01-07 14:22 | REP ---
CT HEAD WITH AND WITHOUT CONTRAST: HISTORY: Metaphysis. CONTRAST: Isovue 370 75 mL. COMPARISON: 10/25/2018 A ring -enhancing mass 2.3 cm in width is present in the right cerebellum. This is increased in size compared to the previous study. A small amount of surrounding edema is present. There is mass effect with partial effacement of the fourth ventricle and quadrigeminal plate cistern. The fourth ventricle is midline. Areas of decreased attenuation are present in the periventricular white matter. This represents small vessel ischemic disease. There is no intraparenchymal hemorrhage, infarct or midline shift. The ventricular system and cortical sulci are dilated consistent with mild volume loss. There is no extracerebral collection. The visualized sinuses are clear. IMPRESSION: 1. There is a 2.3 cm ring -enhancing mass in the right cerebellum that is increased in size compared to the previous study. There is mass effect without midline shift. 2. Small vessel ischemic disease. 3. Mild volume loss. Electronically Signed by Jeffery Sousa MD 01/07/2019 02:27 P
[2019-01-07] MEDS: POTASSIUM CHLORIDE INJ 40 MEQ in LR 1,000 ML IV SCH (15:09)
[2019-01-07] MEDS ORDERED: DIGOXIN INJ 0.5 MG/2 ML AMP (J1160) IV ONE ×2 (16:00→21:00)
[2019-01-07] MEDS: dexameTHASONE 4 MG/ML 1ML VIAL (J1100) IV SCH (16:58)
[2019-01-07 17:51] LABS: MB/CK RELATIVE INDEX 13.75 (< OR =4); TROPONIN I 0.09 NG/ML (< 0.10)
[2019-01-07] MEDS: FERROUS SULFATE 325MG TAB PO SCH (20:34)
--- NOTE | 2019-01-07 21:31 | RO ---
DATE OF PROCEDURE: 01/07/2019 PREPROCEDURE DIAGNOSIS: POSTPROCEDURE DIAGNOSIS: PROCEDURE: Right internal jugular central line placement. SURGEON: Dr. Brenda Rutledge USED EQUIPMENT SALES REPRESENTATIVE: Dr. Lise Scott ANESTHESIA: 1% lidocaine. INDICATION: Poor intravenous (IV) access during MAX cart. MAX cart was called on 01/07/2019. Patient was transferred to the intensive care unit (ICU). Due to lack of IV access, emergent central line had to be placed. DESCRIPTION OF PROCEDURE: A time-out was completed. The patient was placed in the supine position. The right internal jugular (IJ) region was prepped and draped in a sterile manner. 1% lidocaine was used to anesthetize the area. Ultrasound was used to identify the vasculature. A triple lumen central line was introduced over the guidewire. The guidewire was then subsequently removed. Good blood flow was noted from all the ports. Triple lumen central line was sutured in. Chest x-ray was ordered after the catheter placement. The patient tolerated the procedure well. Complications: None. Blood Loss: Minimal.
[2019-01-07 23:43] LABS: MB/CK RELATIVE INDEX 26.56 (< OR =4); TROPONIN I 0.33 NG/ML (< 0.10)
[2019-01-08] VITALS: BP 147/67
[2019-01-08] MEDS ORDERED: levETIRAcetam INJection 1,000 MG in D5W MINI-BAG PLUS 100 ML IV SCH ×2
--- NOTE | 2019-01-08 00:13 | IPN ---
DATE: 01/07/2019 CRITICAL CARE NOTE MAX cart was called at 11:10 a.m. Patient seen and examined. Appears to be cyanotic. As per nursing staff and family, patient had an episode of tonic-clonic seizure. Currently looks cyanotic but does have a pulse. Patient was bagged by respiratory and in preparation for intubation. Pulse oximetry was done. Blood pressure was also done. Patient is saturating at 94% when bagged, patient's jaw was clamped down, with a pulse of 150 and blood pressure 136/70, on monitor appears to be supraventricular tachycardia. Fingerstick is 141. The patient's respirations gradually improved amongst getting ready for intubation, is able to protect airway, and started having more deeper spontaneous respirations and hence bagging was subsided, and patient was placed on nasal cannula, but still unresponsive. STAT lab was ordered. ABG was done showing minimum hypercarbia. Intravenous (IV) fluid boluses were started. Aware that patient does have a history of metastatic brain cancer. STAT CT scan was ordered. Keppra was given 500 mg IV. Patient was transferred to intensive care unit (ICU). Given lack of access, triple lumen central line was placed with Dr. Scott and Dr. Rutledge at the bedside, right internal jugular (IJ) triple lumen central line. Subsequently the patient was sent downstairs to radiology after discussing the risks and benefits with the family of potentially decompensating en route for CT head with and without contrast. The case was discussed with neurology as well. Patient's antibiotics and Decadron was converted into IV. Discussed the case with Dr. Ayala who agreed with the current management. EEG has also been ordered. Subsequently, EKG also done showing atrial fibrillation with rapid ventricular response. Given patient's response of orthostatic hypotension on beta blockers, after discussing with Dr. Heredia, patient was digoxin (dig) loaded with improvement of heart rate. Furthermore, neurosurgery at [facility] was contacted, Dr. Sanches, who was the patient's outpatient neurosurgeon, at [phone], and CT images were pushed over to Dr. Sanches. The case was discussed with Dr. Sanches in great detail. Currently there is no midline shift, but there is enlarging cerebellar mass with mass effect. As per Dr. Sanches, the patient is a poor surgical candidate and has very poor prognosis, but based on the current mass, surgery does not have to be immediate, and Dr. Sanches doubts if patient will be a surgical candidate. But at least based on the CT scan, the patient does not have emergent need for surgery. Case was also discussed with Dr. Michelle Tran, Oncologist, who believes that the patient is also a poor surgical candidate, and who will be discussing further goals of care with the family. Subsequently the patient is kept in ICU on IV fluids, nothing by mouth. Speech and swallow order has been placed. Serial cardiac enzymes have also been ordered. On reassessment, the patient is beginning to wake up a bit more after postictal state with more bilateral spontaenous movement, withdrawing from pain, moves all four extremities but still not following commands as well. VITAL SIGNS: Temperature 99.1, pulse 149, respirations 20, blood pressure 122/89, pulse oximetry 98% on 2 liters. LABORATORY: WBC 20.3, hemoglobin and hematocrit 10.8 over 33.2, platelets 216. Chemistry: Sodium 133, potassium 3.3, chloride 98, bicarbonate 25, BUN 15, creatinine 0.55, lactic acid initially 2.4, repeat 1.4. Troponin negative times two. PHYSICAL EXAMINATION: GENERAL: Patient moves all four extremities spontaneously, withdraws from pain but not following commands. HEENT: Normocephalic, atraumatic. Pupils bilaterally equal and reactive. Unable to follow command for extraocular muscle assessment. CARDIAC: Irregular, tachycardic. No murmurs appreciated. RESPIRATORY: Bilateral clear. ABDOMEN: Soft, nontender. Positive bowel sounds. EXTREMITIES: No clubbing, cyanosis, or edema. NEUROLOGIC: Able to move bilateral upper and lower extremities, withdraws on pain. ASSESSMENT AND PLAN: This is an 83-year-old female patient with underlying medical history of breast cancer, status post bilateral mastectomy, sick sinus syndrome with pacemaker in 2016, hypertension, dyslipidemia, anemia, vasovagal syncope episodes, also found to have metastasis to the patient's lungs, cerebellum, status post gamma knife treatment, presented to the emergency room with complaints of chills, right hip pain radiating down to patent's right leg, generalized weakness. CT scan revealed lytic bone lesions in the sacrum and iliac crest. Has also poor oral intake. Hospital course also complicated with one episode of syncope and second episode of seizure. PROBLEMS: 1. Acute tonic-clonic seizure, likely secondary to brain tumor. CT scan with and without contrast appreciated. Neurology appreciated. Case discussed with neurosurgery, Dr. Sanches, at [facility] at [phone], who believed that based on the CT image, no immediate surgery is needed and also believes the patient is a poor candidate for surgery. Agree with Kassie. Decadron has been changed to IV. Neurologic checks. Seizure precaution. EEG has also been ordered. Further recommendation as per neurology and oncology. 2. Atrial fibrillation with rapid ventricular response. Apparently as per family, patient might have had previous episodes of atrial fibrillation. Was on bisoprolol but has been persisting orthostatic hypotension. Case discussed with Dr. Heredia. Agree with digoxin loading, telemetry monitoring, serial cardiac enzymes. Echocardiogram has already been appreciated during this admission. Thyroid-stimulating hormone (TSH) appreciated. 3. Vasovagal syncope with orthostatic hypotension. IV fluids have been given. Beta cecelia has been discontinued. Echo appreciated. Telemetry monitoring. Serial cardiac enzymes. 4. Gram-negative bacteremia due to diverticulitis. Blood culture positive with pansensitive Citrobacter, possibly secondary to diverticulitis on CT scan. Levaquin, Flagyl for now. Followup C-reactive protein. Further recommendation as per infectious disease. 5. Urinary tract infection. Culture appreciated, sensitive to Levaquin. Further recommendation as per infectious disease. Followup C-reactive protein. 6. Metastatic breast cancer with a history of cancer of bilateral breasts, 2010, status post chemotherapy, radiation and hormonal therapy. Recently found to have metastasis to lung, to the cerebellum, to the bones, sacrum and iliac bones, not receiving any treatment at this time. Patient apparently, as per previous provider, has had some disagreement regarding palliation and hospice care versus aggressive treatment. Hence, oncologist has been consulted for further discussion. Currently case discussed with patient's neurosurgeon as well. Patient is a poor surgical candidate, which the patient's oncologist, Dr. Tran, agreed. Decadron converted to IV. CT scan appreciated. Kassie as ordered. 7. Thrombocytopenia. Will monitor closely. Currently improved. Avoid heparin. 8. Hypertension. Patient with orthostatic hypotension. Holding bisoprolol. Will monitor. 9. Sick sinus syndrome. Patient on pacemaker. Outpatient followup. 10. Iron deficiency anemia. Supplementation as tolerated. 11. Gastroesophageal reflux disease. Continue current medication. 12. Anxiety/depression. Continue current medication as tolerated. 13. Deep vein thrombosis (DVT) prophylaxis. Arixtra given thrombocytopenia. DISPOSITION: Pending clinical improvement, goals of care, patient with advanced cancer, deconditioning, now with seizure, poor long-term prognosis. EEG has been ordered. Further recommendation as per infectious disease, neurologist, and oncologist. Noted that oncologist has consulted hospice for further care. Will have further goals of care discussion with the family if the family is willing. CRITICAL CARE TIME SPENT ARRANGING AND COORDINATING CARE: 60 minutes.
[2019-01-08] MEDS ORDERED: levETIRAcetam INJection 500 MG in D5W MINI-BAG PLUS 100 ML IV SCH ×3 (00:30)
[2019-01-08] MEDS: dexameTHASONE 4 MG/ML 1ML VIAL (J1100) IV SCH ×2 (00:36→07:45)
[2019-01-08 01:00] VITALS: BP 161/71
[2019-01-08] MEDS: IPRATROPIUM 0.5MG/ALBUTEROL 2.5MG INH SOL UD 3ML (DUONEB)(J7620) NEB SCH ×3 (02:00→14:15)
[2019-01-08 04:00] VITALS: BP 138/65
[2019-01-08] MEDS: metroNIDAZOLE 500 MG in APPROPRIATE DILUENT 1 EA IV SCH (05:47)
[2019-01-08] MEDS: POTASSIUM CHLORIDE INJ 40 MEQ in LR 1,000 ML IV SCH (05:47)
[2019-01-08] MEDS ORDERED: LevoFLOXacin 500 MG TABLET PO SCH (06:00)
[2019-01-08 08:00] VITALS: BP 156/72
[2019-01-08] MEDS ORDERED: levETIRAcetam 250MG TABLET (KEPPRA) PO SCH (09:00)
[2019-01-08] MEDS ORDERED: FAMOTIDINE 20 MG TAB PO SCH (09:00)
[2019-01-08] MEDS ORDERED: DIGOXIN 0.125 MG TAB PO SCH (09:00)
[2019-01-08] MEDS: DOCUSATE SODIUM 100 MG CAP PO SCH (09:04)
[2019-01-08] MEDS: ASCORBIC ACID 500 MG TAB PO SCH (09:05)
[2019-01-08] MEDS: FONDAPARINUX SODIUM 2.5 MG/0.5 ML SYR (J1652 PER 0.5MG) SC SCH (09:05)
[2019-01-08] MEDS: SERTRALINE HCL 50 MG TAB PO SCH (09:05)
[2019-01-08] MEDS ORDERED: MORPHINE 10MG/0.5ML ORAL CONCENTRATE SOLUTION U/D SL PRN (10:30)
[2019-01-08] MEDS ORDERED: SCOPOLAMINE 1MG TRANSDERMAL PATCH TOP PRN (10:30)
[2019-01-08] MEDS ORDERED: LORazepam 1 MG TAB PO PRN (10:30)
--- NOTE | 2019-01-08 10:45 | CR ---
DATE OF CONSULTATION: 01/07/2019 REFERRING PROVIDER: Lise Scott MD REASON FOR CONSULTATION: New-onset seizure. HISTORY OF PRESENTING ILLNESS: The patient is an 83-year-old female with past medical history significant for metastatic breast cancer with metastases to the lungs and brain. The patient has a right cerebellar mass with increase vasogenic edema and mass effect on the 4th ventricle. The patient had a witnessed generalized tonic-clonic seizure. The patient was noted to be postictal. She was loaded with Keppra 500 mg twice a day. The patient was made comfort care by Dr. Tran and the oncology group. The patient was currently in her room, lethargic, sleeping. She was unable to fully participated with the examination. She stated this wanted to continue to sleep. REVIEW OF SYSTEMS: Unable to be obtained as the patient was unable to participate with the examination. PAST MEDICAL HISTORY: History of metastatic breast cancer with metastasis to the right cerebellum. Followed by neurosurgery in [facility]. Head CT showing ring-enhancing 2.3 cm right cerebellar mass. PAST SURGICAL HISTORY: Hysterectomy, cholecystectomy, tonsillectomy, adenoidectomy, bilateral mastectomy many years ago, gamma knife excision of cerebellar mass September 2018. ALLERGIES: SULFA. HOME MEDICATIONS: Tylenol, naproxen, vitamin C, aspirin, bisoprolol, vitamin D, Decadron, ferrous sulfate, ranitidine, sertraline. SOCIAL HISTORY: The patient is not a smoker. Does not use any alcohol or illicit drugs. FAMILY HISTORY: Sister with lung cancer. PHYSICAL EXAMINATION: Blood pressure is 140/88, pulse rate is 145, respiratory rate is 20, temperature is 99.2 degrees Fahrenheit, oxygenation 97% on 2 liters nasal cannula. The patient is able to participate, state her name. She does open her eyes. She does move her arms and legs equally. She can participate in the examination very minimally. She is lethargic and sleeping. She wishes to continue to sleep, she states. tone is normal in all four extremities. Babinski signs are absent. The patient reacts to tactile stimulation in all four extremities. Face does not appear to be asymmetric. Extraocular movements briefly noted to be within normal limits. Pupils are reactive to light. ASSESSMENT: Metastatic brain cancer from known lung cancer resulting in vasogenic edema, mass effect on the 4th ventricle, hydrocephalus, and new-onset seizure. PLAN: Continue Keppra 500 mg by mouth twice a day, consistent with plan for comfort measures. Continue other supportive care for comfort measures. The case discussed with Dr. Lise Scott.
--- NOTE | 2019-01-08 10:59 | NUR ---
Recommend level 3 mechanical soft (NDD) solids and thin liquids. Pt will require assistance w/ upright positioning and assistance for PO intake. Please encourage small bite/sip and decreased talking during meals. Pt is limited by c/o pain, difficulty w/ positioning, fatigue, and cognitive status. Addendum: 01/08/[address] [facility] Amended: Links added.
[2019-01-08] MEDS: VITAMIN D 1,000 INTERNATIONAL UNITS TABLET PO SCH (11:39)
[2019-01-08] MEDS ORDERED: IPRA0.00 NEB ×2 (11:44→11:51)
[2019-01-08] MEDS ORDERED: MORP20SO3 PO ×2 (11:44→11:51)
[2019-01-08] MEDS ORDERED: HYOS125TA PO ×2 (11:44→11:51)
[2019-01-08] MEDS ORDERED: PEG1POW PO ×2 (11:44→11:51)
[2019-01-08] MEDS ORDERED: LEVA1TAB2 PO ×2 (11:44→11:51)
[2019-01-08] MEDS ORDERED: DEXA2TA PO ×2 (11:44→11:51)
[2019-01-08] MEDS ORDERED: KEPP250T5 PO ×2 (11:44→11:51)
[2019-01-08] MEDS ORDERED: RANI150C PO ×2 (11:44→11:51)
[2019-01-08] MEDS ORDERED: DIGO0.12 PO ×2 (11:44→11:51)
[2019-01-08] MEDS ORDERED: FLAG500T PO ×2 (11:44→11:51)
[2019-01-08] MEDS ORDERED: COLA100C5 PO ×2 (11:44→11:51)
[2019-01-08] MEDS ORDERED: NEBUMIS2 XX ×2 (11:44→11:51)
[2019-01-08] MEDS ORDERED: MARI5CAP PO ×2 (11:44→11:51)
[2019-01-08] MEDS ORDERED: ZOFR4TAB16 PO ×2 (11:44→11:51)
[2019-01-08] MEDS ORDERED: LORA0.5T11 PO ×2 (11:44→11:51)
[2019-01-08] MEDS ORDERED: metroNIDAZOLE (FLAGYL) 500 MG TAB PO SCH (14:00)
--- NOTE | 2019-01-08 21:17 | ECGEPIP ---
Stationary ECG Study [facility] Test Date: 2019-01-07 Pat Name: ABHIJIT DUNCAN Department: Room: [place] [address] Gender: F Snap Attacher: CAITY : [id number] Requested By: GINNY BRUSH Order Number: [id number] Reading MD: Ashvin Vergara Measurements Intervals Bryant Rate: 164 P: MO: 0 QRS: 52 QRSD: 84 T: 31 QT: 257 QTc: 425 Interpretive Statements ATRIAL FIBRILLATION WITH RAPID VENTRICULAR RESPONSE MARKED ST DEPRESSION, CONSIDER SUBENDOCARDIAL INJURY/ISCHEMIA SINCE 12/30/18 ATRIAL FIBRILLATION AND STT ABNORMALITIES ARE NEW Electronically Signed On 01-08-2019 21:17:22 EDT by Ashvin Vergara
--- NOTE | 2019-01-09 06:14 | DSES ---
DATE OF ADMISSION: 01/01/2019 DATE OF DISCHARGE: 01/08/2019 PRIMARY CARE PROVIDER: Dr. Jef Talbert ONCOLOGIST: Dr. Michelle Tran INFECTIOUS DISEASE: Dr. Gretchen Chance STEREO EQUIPMENT INSTALLER: Dr. Heredia NEUROLOGIST: Dr. Ayala NEUROSURGERY: Dr. Sanches from [facility] FINAL DIAGNOSES: 1. Acute tonic/clonic seizure secondary to brain tumor with metastatic cancer. 2. Atrial fibrillation with rapid ventricular response. 3. Vasovagal syncope with orthostatic hypotension. 4. Gram-negative bacteremia due to diverticulitis. 5. Urinary tract infection (UTI). 6. Metastatic breast cancer with history of bilateral breast cancer status post chemoradiation with metastasis to cerebellum, to the sacrum, iliac, and lung. 7. Reactive airway disease. 8. Thrombocytopenia. 9. Hypertension. 10. Sick sinus syndrome. 11. Iron deficiency anemia. 12. Gastroesophageal reflux disease (GERD). 13. Anxiety/depression. 14. Mild troponin elevation due to demand ischemia secondary to atrial fibrillation with rapid ventricular response. HISTORY OF PRESENT ILLNESS: This is an 83-year-old female patient with underlying medical history of metastatic breast cancer with metastasis to the lung 8 years ago, status post bilateral mastectomy, chemoradiation, now has metastasis to the lung. Follows with Dr. Tran. Has not had treatment for this metastasis for breast cancer since 8 years ago. Patient was on estrogen modulators, which were subsequently stopped. Patient has hypertension, dyslipidemia, anemia. Presents to the emergency department. As per patient's daughter, was having chills at night. Reported recurrent falls at home. Denies any cough. Denies any chest pain, pressure, or discomfort. Denies any shortness of breath, abdominal pain, constipation, diarrhea. Denies any urinary symptoms, nausea, vomiting. Notable with right hip pain radiating down to knee. CT of the abdomen and pelvis in the emergency room shows lytic lesion in the sacrum and iliac crest concerning for bony metastasis, which is likely responsible for the patient's pain. Family also reported that patient is having poor oral intake, poor fluid intake, was showing signs of dehydration. Recent Gamma knife procedure for cerebellar metastasis in September at [facility]. Is on Decadron for cerebral edema since then. HOSPITAL COURSE: Patient was admitted to the hospital. Found to have gram-negative bacteremia. Initially found to have UTI. Later also found to have gram-negative bacteremia. CT scan shows possible source that is diverticulitis. Infectious disease has been consulted. Intravenous (IV) antibiotics given. IV fluids have been provided with improvement of infection. Oncology has been consulted. Echocardiogram has been done. End-of-life discussion has been held. Initially, family was resistant and would like everything to be done. Physical therapy (PT)/occupational therapy (OT) has also been ordered. Antibiotics were continued. Hospital course complicated with vasovagal syncope, for which telemetry monitoring and serial cardiac enzymes were done. Further complication with an episode of tonic-clonic seizure, for which Keppra was given. Patient was brought to intensive care unit (ICU). CT scan urgently done, showing increasing mass. Subsequently, patient's neurosurgeon, Dr. Sanches, has been contacted. Given severe deconditioning, poor oral intake, and active treatment for infection, Dr. Sanches does not think patient will tolerate a surgery as well as Dr. Michelle Tran does not think the patient will tolerate the surgery. Neurology, Dr. Ayala, has been on consult. Patient started on Keppra. Further discussion with the family was held by Dr. Tran, and patient was made comfort measures only, and hospice has been consulted. Family would like to respect the patient's wish and bring the patient home as soon as possible. Subsequently, arrangements are made for patient to be discharged home. Hospital course was also complicated with orthostatic hypotension. Blood pressure medication was on hold, and case was discussed with patient's pedigree researcher. Patient was given digoxin with improvement of atrial fibrillation with rapid ventricular response, and blood pressure medication was discontinued. PROCEDURES PERFORMED: Right internal jugular (IJ) triple-lumen central line. VITAL SIGNS: Temperature 98.2, pulse 98, respirations 15, blood pressure 156/72, pulse oximetry 97% on room air. LABORATORY: WBC 20, hemoglobin and hematocrit 10.8/33.2, platelets 216. Chemistry: Sodium 133, potassium 3.3, chloride 98, bicarbonate 25, BUN 15, creatinine 0.55. PHYSICAL EXAMINATION: GENERAL: Patient lethargic, alert, in no acute distress. HEENT: Normocephalic, atraumatic. CARDIAC: Irregular. No longer tachycardic. RESPIRATORY: Bilaterally clear. ABDOMEN: Soft, nontender. Positive bowel sounds. EXTREMITIES: No edema bilateral lower extremities. Moves bilateral upper and lower extremities. Follows simple commands. Cranial nerves II-XII grossly intact. DISCHARGE MEDICATION: - DuoNeb inhalation every 6 hours as needed - digoxin 0.125 mg by mouth daily, held medication if patient not tolerating oral with decreased urine output - Colace 100 mg by mouth twice a day - Marinol one capsule 5 mg by mouth twice a day - hyoscyamine 0.125 mg by mouth every 4 hours as needed for terminal secretions - Keppra 500 mg by mouth twice a day - Levaquin 500 mg by mouth daily for 5 days - Ativan 0.5 mg by mouth every 4 hours as needed - Flagyl 500 mg by mouth every 8 hours for 5 days - morphine - Roxanol 100 mg/5 mL concentration, 0.125 to 1 mL by mouth every 2 hours as needed - Zofran 4 mg by mouth every 6 hours as needed - MiraLAX one pack by mouth daily as needed - acetaminophen 500 mg by mouth every 6 hours as needed - vitamin C 1000 mg by mouth twice a day - vitamin D 1000 mg by mouth daily - cranberry extract 400 mg by mouth twice a day - vitamin B12 at 5000 mcg sublingual daily - dexamethasone 2 mg by mouth three times a day - ferrous sulfate 325 mg by mouth nightly - glucosamine 1500 mg by mouth every evening - ranitidine 150 mg by mouth daily - Zoloft 50 mg by mouth daily DISCHARGE INSTRUCTIONS: Please followup with hospice for further care. Encourage oral intake. Aspiration precautions, seizure precautions, fall precautions. Return to the hospital if symptoms worsen or out of control. Further care as per hospice provider. TIME SPENT ARRANGING AND COORDINATING CARE: 45 minutes.
== END 2019-01-08 15:00 | disposition hospice, home (50) | DRG 948 ==
LOC: M ED 17:01 → M ED INP 21:56 → M MS4PR 12-31 01:05 → OBSVTOIN 01-01 16:25 → M PCU 01-03 10:30 → M ICU 01-07 11:36
PROVIDERS: ADMIT Internal Medicine; ATTEND Hospitalist
DX: G89.3 Neoplasm related pain (acute) (chronic) (principal); C79.31 Secondary malignant neoplasm of brain; C78.00 Secondary malignant neoplasm of unspecified lung; N39.0 Urinary tract infection, site not specified; C79.51 Secondary malignant neoplasm of bone; K57.32 Diverticulitis of large intestine without perforation or abscess without bleeding; C50.911 Malignant neoplasm of unspecified site of right female breast; R78.81 Bacteremia; K21.9 Gastro-esophageal reflux disease without esophagitis; I48.91 Unspecified atrial fibrillation; F41.9 Anxiety disorder, unspecified; F32.9 Major depressive disorder, single episode, unspecified; D69.6 Thrombocytopenia, unspecified; I10 Essential (primary) hypertension; D50.9 Iron deficiency anemia, unspecified; I95.1 Orthostatic hypotension; I49.5 Sick sinus syndrome; G40.409 Other generalized epilepsy and epileptic syndromes, not intractable, without status epilepticus; Z90.11 Acquired absence of right breast and nipple; Z90.12 Acquired absence of left breast and nipple; Z51.5 Encounter for palliative care; Z88.2 Allergy status to sulfonamides; Z79.899 Other long term (current) drug therapy; Z87.891 Personal history of nicotine dependence; Z95.0 Presence of cardiac pacemaker; E78.5 Hyperlipidemia, unspecified